=== PATIENT | female | born 1980 | race African-American/Black ===

== ENCOUNTER 2017-04-14 20:32 | Observation (INO) | payer MEDICARE, MEDICAID ==
[~2017-04-14] VITALS: Ht 167.6 cm; Wt 83.1 kg
[2017-04-14] MEDS ORDERED: FLUO40CA PO (20:54)
[2017-04-14] MEDS ORDERED: OMEP40CA2 PO (20:54)
[2017-04-14] MEDS ORDERED: ONDA8TAB7 PO (20:54)
[2017-04-14] MEDS ORDERED: LORA10CA PO (20:54)
[2017-04-14] MEDS ORDERED: QUET1TAB10 PO (20:54)
[2017-04-14] MEDS ORDERED: MORP30TASA PO (20:54)
[2017-04-14] MEDS ORDERED: OXYC1TAB23 PO (20:54)
[2017-04-14] MEDS ORDERED: KEPP1TAB PO (20:54)
[2017-04-14 22:49] LABS: METHADONE URINE NEGATIVE (NEGATIVE)
[2017-04-14 23:03] LABS: MEAN CORPUSCULAR HGB CONC 33.4 g/dl (32.0-36.5); MEAN CORPUSCULAR VOLUME 104.8 fl (80.0-96.0); PLATELET COUNT, AUTOMATED 167 10^3/uL (150-450); RED CELL DISTRIBUTION WIDTH 13.3 % (11.5-14.5); WHITE BLOOD COUNT 4.5 10^3/uL (4.0-10.0)
[2017-04-14 23:24] LABS: CONTROL LINE HCG INT CTR LINE PRESENT
[2017-04-14] MEDS ORDERED: LORA10TA2 PO (23:34)
[2017-04-14] MEDS ORDERED: ESTR125TA PO (23:34)
[2017-04-14] MEDS ORDERED: SUMA50TA2 PO (23:34)
[2017-04-14] MEDS ORDERED: VENTAER INH (23:34)
[2017-04-14] MEDS ORDERED: QUET30XR PO (23:34)
[2017-04-14 23:41] LABS: ALBUMIN 2.1 GM/DL (3.2-5.2); ALKALINE PHOSPHATASE 84 U/L (45-117); ALT/SGPT 60 U/L (12-78); ANION GAP 7 MEQ/L (8-16); AST/SGOT 191 U/L (7-37); BILIRUBIN,DIRECT 0.4 MG/DL (0.0-0.2); BILIRUBIN,TOTAL 0.5 MG/DL (0.2-1.0); BLOOD UREA NITROGEN 16 MG/DL (7-18); CALCIUM LEVEL 7.6 MG/DL (8.5-10.1); CARBON DIOXIDE LEVEL 27 MEQ/L (21-32); CHLORIDE LEVEL 110 MEQ/L (98-107); CREATININE FOR GFR 0.72 MG/DL (0.55-1.02); GLOMERULAR FILTRATION RATE > 60.0 (>60); GLUCOSE, FASTING 68 MG/DL (70-105); POTASSIUM SERUM 3.9 MEQ/L (3.5-5.1); SODIUM LEVEL 144 MEQ/L (136-145); TOTAL PROTEIN 5.1 GM/DL (6.4-8.2)
[2017-04-15] MEDS ORDERED: NS 1,000 ML IV ONE
[2017-04-15] MEDS ORDERED: NS 1,000 ML IV SCH (02:30)
[2017-04-15] MEDS ORDERED: ACETAMINOPHEN TAB 650MG DOSE (2X325MG) PO PRN (02:45)
--- NOTE | 2017-04-15 03:56 | HPEPDOC ---
[facility] Medical History & Physical Date of Admission Apr 15, 2017 History and Physical PRIMARY CARE PROVIDER: Junaid Maxwell ATTENDING: Dr. Greta Márquez CHIEF COMPLAINT: Suicidal ideation HISTORY OF PRESENT ILLNESS: This is a 36-year-old female past medical history of ADHD, Asperger's, bipolar disorder, anxiety, Crohn's disease, depression who presents with suicidal ideations. Patient apparently had text that her brother and sister that she wanted to and was thinking of planning a way to commit suicide. Patient states she's been very depressed and does not believe that her medications are working. She has attempted to schedule an appointment with behavioral health however has been having a difficult time doing so. Patient states she has history of panic attacks, had a recent exercise treadmill stress test and echocardiogram. She denies any other strenuous activity. Denies chest pain/palpitations. Patient was noted to have elevated CPK level, psychiatry was called, and wanted the CK level to be lower prior to admission to inpatient mental health. Patient was started on IV fluids in the ED. PAST MEDICAL HISTORY: As per HPI PAST SURGICAL HISTORY: , left knee surgery, ankle surgery, hysterectomy , gastric bypass SOCIAL HISTORY: Denies tobacco, alcohol, illicit drug use. Urine tox screen however was positive for marijuana FAMILY HISTORY: Noncontributory ALLERGIES: Please see below. REVIEW OF SYSTEMS: HEENT: Denies sore throat/headache CARDIOVASCULAR: Denies chest pain/palpitations RESPIRATORY: Denies shortness of breath/cough GASTROINTESTINAL: denies nausea/vomiting GENITOURINARY: Denies dysuria/urinary urgency. MUSCULOSKELETAL: Denies myalgias/arthralgias NEUROLOGICAL: Denies any focal weakness HOME MEDICATIONS: Please see below. PHYSICAL EXAMINATION: Vitals: (see below) General: No acute distress, laying comfortably in bed. HEENT: Moist mucous membranes. Neck: No JVD or lymphadenopathy Cardiac: RRR, No murmurs Pulm: Clear to auscultation b/l. No wheezing, rhonchi Abd: NT/ND + BS Ext: No edema or cyanosis Depressed with suicidal ideations LABORATORY DATA: See below. IMAGING: MICROBIOLOGY: Please see below. ASSESSMENT/PLAN: 1. Elevated CPK likely secondary to recent stress test. Patient denies any other illicit drug use although her drug screen was positive for marijuana. No seizures. Started on IV fluids. We'll trend CK level. Renal function at baseline. 2. Suicidal ideation- will need psychiatric consultation once medically optimized. One-to-one 3. History of bipolar disorder continue home meds 4. History of anxiety continue meds 5. History of Crohn's continue meds 6. Chronic back pain- on morphine /Percocet at home 7. Macrocytic anemia- we'll check a B12/folate. Iron/ferritin/TIBC. History of gastric bypass DVT prophylaxis SCDs Patient was followed by Dr. Greta Márquez starting 04/15/17 at 7 AM. Vital Signs Vital Signs Date Time Temp Pulse Resp B/P (MAP) Pulse Ox O2 Delivery O2 Flow Rate FiO2 04/14/17 20:33 98.7 78 18 141/91 (108) 99 Laboratory Data Labs 24H Laboratory Tests 2 04/14/17 22:20: Urine Amphetamines Screen NEGATIVE, Urine Benzodiazepines Screen NEGATIVE, Urine Opiates Screen POSITIVEH, Urine Methadone Screen NEGATIVE, Urine Barbiturates Screen NEGATIVE, Urine Phencyclidine Screen NEGATIVE, Urine Cocaine Metabolite Screen NEGATIVE, Urine Cannabinoids Screen POSITIVEH 04/14/17 22:45: Nucleated Red Blood Cells % (auto) 0.0, Anion Gap 7L, Glomerular Filtration Rate > 60.0, Calcium Level 7.6L, Aspartate Amino Transf (AST/SGOT) 191H, Alanine Aminotransferase (ALT/SGPT) 60, Alkaline Phosphatase 84, Total Bilirubin 0.5, Direct Bilirubin 0.4H, Total Creatine Kinase 2444H, Total Protein 5.1L, Albumin 2.1L, Albumin/Globulin Ratio 0.70L, Thyroid Stimulating Hormone (TSH) 3.010, Human Chorionic Gonadotropin, Qual NEGATIVE, Salicylates Level < 1.7L, Acetaminophen Level 10.8, Ethyl Alcohol Level < 0.003 CBC/BMP Laboratory Tests 04/14/17 22:45 Red Blood Count 3.31 L, Mean Corpuscular Volume 104.8 H, Mean Corpuscular Hemoglobin 35.0 H, Mean Corpuscular Hemoglobin Concent 33.4, Red Cell Distribution Width 13.3 Home Medications Scheduled Conjugated Estrogens (Premarin) 1.25 Mg Tab, 1.25 MG PO DAILY Fluoxetine Hcl (Fluoxetine HCl) 40 Mg Cap, 40 MG PO DAILY Levetiracetam (Keppra) 500 Mg Tab, 500 MG PO BID Loratadine (Loratadine) 10 Mg Tab, 10 MG PO DAILY Morphine Sulfate (Morphine Sulfate ER) 30 Mg Tabcr, 30 MG PO TID Omeprazole (Omeprazole) 40 Mg Cap, 40 MG PO BID Quetiapine Fumarate (Seroquel Xr) 300 Mg Theresa, 600 MG PO DAILY Scheduled PRN Albuterol Sulfate (Ventolin Hfa) 108 Mcg/Act Aer, 2 PUFFS INH Q4H PRN for SHORTNESS OF BREATH Ondansetron HCl (Ondansetron HCl) 8 Mg Tab, 8 MG PO TID PRN for NAUSEA Oxycodone/Acetaminophen (Oxycodone/Acetaminophen 5-325 mg) 1 Tab Tab, 1 TAB PO QID PRN for PAIN SCALE 6-10 Sumatriptan Succinate (Sumatriptan Succinate) 50 Mg Tab, 50 MG PO DAILY PRN for MIGRAINE Allergies Coded Allergies: Adalimumab (Verified Allergy, Intermediate, 04/14/17) Tramadol (Verified Allergy, Intermediate, 04/14/17) STEVE SALAS MD Apr 15, 2017 03:56
[2017-04-15] MEDS: NS 1,000 ML IV SCH ×3 (04:57→21:52)
[2017-04-15 06:00] VITALS: BP 128/91
[2017-04-15 06:07] LABS: BASO % 0.2 % (0.0-1.0); EOS % 0.5 % (0.0-3.0); IMMATURE GRANULOCYTE % 0.5 % (0-0); LYMPH # 1.2 10^3/uL (1.5-4.5); LYMPH % 28.5 % (24.0-44.0); MEAN CORPUSCULAR HEMOGLOBIN 35.1 pg (27.0-33.0); MEAN CORPUSCULAR HGB CONC 33.6 g/dl (32.0-36.5); MEAN CORPUSCULAR VOLUME 104.2 fl (80.0-96.0); MONO # 0.4 10^3/uL (0.0-0.8); MONO % 10.1 % (0.0-5.0); NEUTROPHILS # 2.6 10^3/uL (1.8-7.7); NEUTROPHILS % 60.2 % (36.0-66.0); PLATELET COUNT, AUTOMATED 176 10^3/uL (150-450); RED CELL DISTRIBUTION WIDTH 13.4 % (11.5-14.5); WHITE BLOOD COUNT 4.4 10^3/uL (4.0-10.0)
[2017-04-15 06:40] LABS: PERCENT SATURATION 99.1 % (13.2-45.0)
[2017-04-15 10:00] VITALS: BP 102/64
[2017-04-15] MEDS ORDERED: ALBUTEROL 90 MCG/ACT 8GM HFA INHALER INH PRN (10:30)
[2017-04-15] MEDS ORDERED: SUMAtriptan SUCCINATE 25 MG TAB PO PRN (10:30)
--- NOTE | 2017-04-15 10:32 | IPNPDOC ---
Date Seen The patient was seen on 04/15/17. Progress Note SUBJECTIVE: Patient is a 36-year-old female with suicidal ideation. Patient is evaluated at bedside this morning. She has a one-to-one sitter. She appear somewhat melancholic and subdued. States that she wanted to kill herself, but did not have a bustos in place to do so. She denies chest pain, fever , night sweats, chills, abdominal pain. Said she ate breakfast this morning. OBJECTIVE PHYSICAL EXAMINATION: VITAL SIGNS: Please see below. GENERAL: Well nourished, well developed female, appears stated age, somewhat melancholic, without acute distress HEENT: Atraumatic, normocephalic, PERRL, EOMI, oral mucosa appears pink and moist, nasal septum appears midline, nares are patent CARDIOVASCULAR: Regular rate and rhythm, normal S1 and S2, no murmur, rub, click RESPIRATORY: Somewhat diminished lung sounds on the right lower lung lobe likely due to positioning, other clear lung sounds throughout, no wheeze, rhonchi, crackles ABDOMINAL: Soft, flat, non-tender, non-distended, bowel sounds somewhat diminished, no organomegaly, no rebound or guarding EXTREMITIES: Radial and posterior tibial pulses equal and symmetrical, +2, without peripheral edema NEUROLOGICAL: CN II-XII grossly intact PSYCHOLOGICAL: Alert and conversant, melancholic LABORATORY DATA: Please see below. MICROBIOLOGY: Please see below. DVT prophylaxis ordered?: Mechanical - TEDs and sequentials ASSESSMENT AND PLAN: This is a 36-year-old female with suicidal ideation. PROBLEMS: 1. Elevated CPK: Improving. CPK is 1868. Continue with NS @125mLs/hr. Renal function is within appropriate range. 2. Suicidal ideation: Psychiatry will need to consulted once CPK begins to improve; improvements already noted Will need transfer to [facility]. 3. Macrocytic anemia: Patient is status-post gastric bypass which is likely result of macrocytic anemia. Folate and vitamin B12 level are pending. Iron studies are within optimal range. 4. Positive toxicology: Cannabinoids were positive. 5. Depression: Continue with Fluoxetine. 6. Seizures: Continue with Keppra. 7. Bipolar: Continue with Seroquel. 8. Allergies: Continue with Claritin. 9. Gastroesophageal reflux disease: Continue with Omeprazole. 10. Migraines: Continue with Imitrex. DISPOSITION: Continue IVF with NS @125mLs/hr. IMHU transfer once CPK improves. Potential transfer in 24-48 hours. [facility] V[facility] Signs/I&O Vital Signs Date Time Temp Pulse Resp B/P (MAP) Pulse Ox O2 Delivery O2 Flow Rate FiO2 04/15/17 07:54 Room Air 04/15/17 06:00 97.3 66 16 128/91 (103) 99 Laboratory Data 24H LABS Laboratory Tests 2 04/14/17 22:20: Urine Amphetamines Screen NEGATIVE, Urine Benzodiazepines Screen NEGATIVE, Urine Opiates Screen POSITIVEH, Urine Methadone Screen NEGATIVE, Urine Barbiturates Screen NEGATIVE, Urine Phencyclidine Screen NEGATIVE, Urine Cocaine Metabolite Screen NEGATIVE, Urine Cannabinoids Screen POSITIVEH 04/14/17 22:45: Nucleated Red Blood Cells % (auto) 0.0, Anion Gap 7L, Glomerular Filtration Rate > 60.0, Calcium Level 7.6L, Aspartate Amino Transf (AST/SGOT) 191H, Alanine Aminotransferase (ALT/SGPT) 60, Alkaline Phosphatase 84, Total Bilirubin 0.5, Direct Bilirubin 0.4H, Total Creatine Kinase 2444H, Total Protein 5.1L, Albumin 2.1L, Albumin/Globulin Ratio 0.70L, Thyroid Stimulating Hormone (TSH) 3.010, Human Chorionic Gonadotropin, Qual NEGATIVE, Salicylates Level < 1.7L, Acetaminophen Level 10.8, Ethyl Alcohol Level < 0.003 04/15/17 05:54: Nucleated Red Blood Cells % (auto) 0.0, Total Creatine Kinase 1868H, Immature Granulocyte % (Auto) 0.5H, White Blood Count 4.4, Red Blood Count 3.08L, Hemoglobin 10.8L, Hematocrit 32.1L, Mean Corpuscular Volume 104.2H, Mean Corpuscular Hemoglobin 35.1H, Mean Corpuscular Hemoglobin Concent 33.6, Red Cell Distribution Width 13.4, Platelet Count 176, Neutrophils (%) (Auto) 60.2, Lymphocytes (%) (Auto) 28.5, Monocytes (%) (Auto) 10.1H, Eosinophils (%) (Auto) 0.5, Basophils (%) (Auto) 0.2, Neutrophils # (Auto) 2.6, Lymphocytes # (Auto) 1.2L, Monocytes # (Auto) 0.4, Eosinophils # (Auto) 0.0, Basophils # (Auto) 0.0, Immature Granulocyte # (Auto) 0.0, Iron Level 110, Total Iron Binding Capacity 111L, Transferrin % Saturation 99.1H, Ferritin 154 CBC/BMP Laboratory Tests 04/14/17 22:45 Red Blood Count 3.31 L, Mean Corpuscular Volume 104.8 H, Mean Corpuscular Hemoglobin 35.0 H, Mean Corpuscular Hemoglobin Concent 33.4, Red Cell Distribution Width 13.3 04/15/17 05:54 Red Blood Count 3.08 L, Mean Corpuscular Volume 104.2 H, Mean Corpuscular Hemoglobin 35.1 H, Mean Corpuscular Hemoglobin Concent 33.6, Red Cell Distribution Width 13.4, Neutrophils (%) (Auto) 60.2, Lymphocytes (%) (Auto) 28.5, Monocytes (%) (Auto) 10.1 H, Eosinophils (%) (Auto) 0.5, Basophils (%) ( Auto) 0.2, Neutrophils # (Auto) 2.6, Lymphocytes # (Auto) 1.2 L, Monocytes # ( Auto) 0.4, Eosinophils # (Auto) 0.0, Basophils # (Auto) 0.0 IGOR PARK DO Apr 15, 2017 10:32
[2017-04-15] MEDS: LORATADINE 10 MG TAB PO SCH (11:05)
[2017-04-15] MEDS: FLUoxetine 20 MG CAP PO SCH (11:06)
[2017-04-15] MEDS: levETIRAcetam 250MG TABLET (KEPPRA) PO SCH ×2 (11:06→21:51)
[2017-04-15] MEDS: OMEPRAZOLE 20 MG CAP PO SCH ×2 (11:06→21:51)
[2017-04-15] MEDS: PERCOCET 5MG/325MG TAB PO PRN ×2 (11:38→20:22)
[2017-04-15] MEDS: MORPHINE 15 MG SA TAB PO SCH ×2 (13:07→21:51)
[2017-04-15 18:00] VITALS: BP 131/82
--- NOTE | 2017-04-15 21:41 | ECGEPIP ---
Stationary ECG Study [facility] Test Date: 2017-04-15 Pat Name: MICKI OATES Department: Room: [place] [address] Gender: F Clinical Supervisor: : 1980 Requested By: JOSESITO DAIVLA Order Number: [id number] Reading MD: Carly Mejía Measurements Intervals [place] Rate: 75 P: 58 AR: 131 QRS: 6 QRSD: 85 T: 1 QT: 424 QTc: 474 Interpretive Statements SINUS RHYTHM LOW QRS VOLTAGE IN PRECORDIAL LEADS AND LIMB POSSIBLE RIGHT VENTRICULAR CONDUCTION DELAY MODERATE T-WAVE ABNORMALITY, CONSIDER ANTERIOR ISCHEMIA Left axis deviation NO PRIOR Electronically Signed On 04-15-2017 21:41:27 EST by Carly Mejía
[2017-04-15] MEDS: QUEtiapine 300 MG XR TABLET(SEROQUEL XR) PO SCH (21:51)
[2017-04-15 22:00] VITALS: BP 122/81
--- NOTE | 2017-04-16 00:16 | IPNPDOC ---
Text Note Date of Service The patient was seen on 04/16/17. NOTE overnight provider called for complaint of chest pain. On exam the pt complained of chest pain under her left breast, tender to palpation, 8/10, new and acute in onset with radiation to her back. Cardiac markers ordered. EKG demonstrated NSR with some flipped T waves in leads V2.V3. CTA chest ordered, r/ o dissection. BP/vitals stable at time of exam. VS,Fishbone, I+O VS, Fishbone, I+O Laboratory Tests 04/15/17 05:54 Red Blood Count 3.08 L, Mean Corpuscular Volume 104.2 H, Mean Corpuscular Hemoglobin 35.1 H, Mean Corpuscular Hemoglobin Concent 33.6, Red Cell Distribution Width 13.4, Neutrophils (%) (Auto) 60.2, Lymphocytes (%) (Auto) 28.5, Monocytes (%) (Auto) 10.1 H, Eosinophils (%) (Auto) 0.5, Basophils (%) ( Auto) 0.2, Neutrophils # (Auto) 2.6, Lymphocytes # (Auto) 1.2 L, Monocytes # ( Auto) 0.4, Eosinophils # (Auto) 0.0, Basophils # (Auto) 0.0 Vital Signs Date Time Temp Pulse Resp B/P (MAP) Pulse Ox O2 Delivery O2 Flow Rate FiO2 04/15/17 22:00 97.7 67 18 122/81 (95) 97 Room Air JOSESITO DAVILA DO Apr 16, 2017 00:16
[2017-04-16 02:00] VITALS: BP 109/67
[2017-04-16] MEDS: NS 1,000 ML IV SCH ×3 (04:32→21:33)
[2017-04-16] MEDS: PERCOCET 5MG/325MG TAB PO PRN ×2 (04:56→12:55)
[2017-04-16] MEDS: MORPHINE 15 MG SA TAB PO SCH (05:42)
[2017-04-16 06:00] VITALS: BP 101/69
[2017-04-16 06:20] LABS: BASO % 0.3 % (0.0-1.0); EOS # 0.1 10^3/uL (0.0-0.50); EOS % 1.8 % (0.0-3.0); IMMATURE GRANULOCYTE % 0.3 % (0-0); LYMPH # 1.8 10^3/uL (1.5-4.5); LYMPH % 53.7 % (24.0-44.0); MEAN CORPUSCULAR HEMOGLOBIN 34.9 pg (27.0-33.0); MEAN CORPUSCULAR HGB CONC 33.4 g/dl (32.0-36.5); MEAN CORPUSCULAR VOLUME 104.3 fl (80.0-96.0); MONO # 0.3 10^3/uL (0.0-0.8); MONO % 9.8 % (0.0-5.0); NEUTROPHILS # 1.1 10^3/uL (1.8-7.7); NEUTROPHILS % 34.1 % (36.0-66.0); PLATELET COUNT, AUTOMATED 143 10^3/uL (150-450); RED CELL DISTRIBUTION WIDTH 13.2 % (11.5-14.5); WHITE BLOOD COUNT 3.3 10^3/uL (4.0-10.0)
--- NOTE | 2017-04-16 07:20 | IPNPDOC ---
Date Seen The patient was seen on 04/16/17. Progress Note SUBJECTIVE: Pt seen and examined at the bedside. Chart has been reviewed. She complains of feeling very sleepy. no nausea, abd pain, sob, chills,chest pain. OBJECTIVE PHYSICAL EXAMINATION: VITAL SIGNS: Please see below. GENERAL: Well nourished, well developed female, appears stated age, without acute distress HEENT: Atraumatic, normocephalic, PERRL, EOMI, oral mucosa appears pink and moist, nasal septum appears midline, nares are patent CARDIOVASCULAR: Regular rate and rhythm, normal S1 and S2, no murmur, rub, click RESPIRATORY: Somewhat diminished lung sounds on the right lower lung lobe likely due to positioning, other clear lung sounds throughout, no wheeze, rhonchi, crackles ABDOMINAL: Soft, flat, non-tender, non-distended, bowel sounds somewhat diminished, no organomegaly, no rebound or guarding EXTREMITIES: Radial and posterior tibial pulses equal and symmetrical, +2, without peripheral edema NEUROLOGICAL: CN II-XII grossly intact PSYCHOLOGICAL: Alert and conversant, melancholic LABORATORY DATA: Please see below. MICROBIOLOGY: Please see below. DVT prophylaxis ordered?: Mechanical - TEDs and sequentials ASSESSMENT AND PLAN: 36-year-old female past medical history of ADHD, Asperger's , bipolar disorder, anxiety, Crohn's disease, depression who presents with suicidal ideations.Patient apparently had text that her brother and sister that she wanted to and was thinking of planning a way to commit suicide. Patient states she's been very depressed and does not believe that her medications are working. She has attempted to schedule an appointment with behavioral health however has been having a difficult time doing so.Patient states she has history of panic attacks, had a recent exercise treadmill stress test and echocardiogram.She denies any other strenuous activity. Denies chest pain/palpitations.Patient was noted to have elevated CPK level, psychiatry was called, and wanted the CK level to be lower prior to admission to inpatient mental health. Patient was started on IV fluids in the ED. CURRENT ISSUES: 1. Elevated CPK: Improving. CPK is 1868. Continue with NS @125mLs/hr. Renal function is within appropriate range. 2. Suicidal ideation: Psychiatry will need to consulted once CPK begins to improve; improvements already noted Will need transfer to [facility]. 3. Macrocytic anemia: Patient is status-post gastric bypass which is likely result of macrocytic anemia. Folate and vitamin B12 level are pending. Iron studies are within optimal range. 4. Positive toxicology: Cannabinoids were positive. 5. Depression: Continue with Fluoxetine. 6. Seizures: Continue with Keppra. 7. Bipolar: Continue with Seroquel. 8. Allergies: Continue with Claritin. 9. Gastroesophageal reflux disease: Continue with Omeprazole. 10. Migraines: Continue with Imitrex. DISPOSITION: Continue IVF with NS @125mLs/hr. [facility] transfer once CPK improves. Potential transfer in 24-48 hours. VS, I&O, 24H, Fishbone Vital Signs/I&O Vital Signs Date Time Temp Pulse Resp B/P (MAP) Pulse Ox O2 Delivery O2 Flow Rate FiO2 04/16/17 05:26 18 97 Room Air 04/16/17 02:00 97.1 70 109/67 (81) Laboratory Data 24H LABS Laboratory Tests 2 04/15/17 05:54: Immature Granulocyte % (Auto) 0.5H, White Blood Count 4.4, Red Blood Count 3.08L , Hemoglobin 10.8L, Hematocrit 32.1L, Mean Corpuscular Volume 104.2H, Mean Corpuscular Hemoglobin 35.1H, Mean Corpuscular Hemoglobin Concent 33.6, Red Cell Distribution Width 13.4, Platelet Count 176, Neutrophils (%) (Auto) 60.2, Lymphocytes (%) (Auto) 28.5, Monocytes (%) (Auto) 10.1H, Eosinophils (%) (Auto) 0.5, Basophils (%) (Auto) 0.2, Neutrophils # (Auto) 2.6, Lymphocytes # (Auto) 1.2L, Monocytes # (Auto) 0.4, Eosinophils # (Auto) 0.0, Basophils # (Auto) 0.0, Immature Granulocyte # (Auto) 0.0, Nucleated Red Blood Cells % (auto) 0.0, Iron Level 110, Total Iron Binding Capacity 111L, Transferrin % Saturation 99.1H, Ferritin 154, Total Creatine Kinase 1868H 04/15/17 22:55: Total Creatine Kinase 858H, Creatine Kinase MB 3.8H, Creatine Kinase MB Relative Index 0.44, Troponin I < 0.02 CBC/BMP Laboratory Tests 04/15/17 05:54 Red Blood Count 3.08 L, Mean Corpuscular Volume 104.2 H, Mean Corpuscular Hemoglobin 35.1 H, Mean Corpuscular Hemoglobin Concent 33.6, Red Cell Distribution Width 13.4, Neutrophils (%) (Auto) 60.2, Lymphocytes (%) (Auto) 28.5, Monocytes (%) (Auto) 10.1 H, Eosinophils (%) (Auto) 0.5, Basophils (%) ( Auto) 0.2, Neutrophils # (Auto) 2.6, Lymphocytes # (Auto) 1.2 L, Monocytes # ( Auto) 0.4, Eosinophils # (Auto) 0.0, Basophils # (Auto) 0.0 ANDRZEJ TRONCOSO MD Apr 16, 2017 05:41
[2017-04-16] MEDS ORDERED: ISOVUE-370 76% 100ML VIAL (Q9967) As Ordered ONE (08:53)
[2017-04-16] MEDS: LORATADINE 10 MG TAB PO SCH (08:57)
[2017-04-16] MEDS: levETIRAcetam 250MG TABLET (KEPPRA) PO SCH ×2 (08:57→21:35)
[2017-04-16] MEDS: FLUoxetine 20 MG CAP PO SCH (08:57)
[2017-04-16] MEDS: OMEPRAZOLE 20 MG CAP PO SCH ×2 (08:57→21:34)
[2017-04-16] MEDS: ONDANSETRON 4MG/2ML VIAL (J2405) IV PRN ×2 (09:41→17:28)
[2017-04-16 10:00] VITALS: BP 124/63
[2017-04-16] MEDS ORDERED: oxyCODONE 5MG TAB PO PRN (13:15)
[2017-04-16] MEDS ORDERED: SENOKOT S TAB PO PRN (13:15)
[2017-04-16] MEDS ORDERED: MORPHINE 2 MG/ML 1ML SYRINGE IV PRN (13:15)
[2017-04-16] MEDS ORDERED: GI COCKTAIL 50ML BTL(HYOSCYAMINE/MAALOX/LIDOCAINE VISCOUS)(1:3:1) PO PRN (13:15)
[2017-04-16] MEDS ORDERED: MOM 30ML SUSPENSION UDC PO PRN (13:15)
[2017-04-16] MEDS ORDERED: KETOROLAC 30 MG/ML VIAL (J1885) IV ONE (13:30)
[2017-04-16 14:00] VITALS: BP 134/86
[2017-04-16] MEDS: ACETAMINOPHEN 500 MG TAB PO SCH ×2 (14:02→21:35)
[2017-04-16] MEDS ORDERED: GI COCKTAIL 50ML BTL(HYOSCYAMINE/MAALOX/LIDOCAINE VISCOUS)(1:3:1) PO ONE (14:30)
[2017-04-16] MEDS ORDERED: NALOXONE INJ 0.4 MG/1 ML VIAL (J2310) IV PRN (14:30)
[2017-04-16] MEDS ORDERED: MORPHINE 30 MG SA TAB PO ONE (14:30)
[2017-04-16] MEDS: MORPHINE 30 MG TAB **MSIR PO PRN ×2 (17:25→21:37)
[2017-04-16] MEDS: QUEtiapine 300 MG XR TABLET(SEROQUEL XR) PO SCH (21:36)
[2017-04-16] MEDS: MORPHINE 30 MG SA TAB PO SCH (21:36)
[2017-04-16 22:00] VITALS: BP 132/68
[2017-04-16] MEDS: diphenhydrAMINE INJ 50MG/ML VIAL (J1200) IV PRN (22:31)
[2017-04-17 02:00] VITALS: BP 132/76
[2017-04-17] MEDS: NS 1,000 ML IV SCH ×2 (04:58→13:00)
[2017-04-17] MEDS: MORPHINE 30 MG TAB **MSIR PO PRN ×2 (05:40→14:34)
[2017-04-17] MEDS: ONDANSETRON 4MG/2ML VIAL (J2405) IV PRN (05:40)
[2017-04-17] MEDS: diphenhydrAMINE INJ 50MG/ML VIAL (J1200) IV PRN (05:41)
[2017-04-17 05:51] LABS: BASO % 0.3 % (0.0-1.0); IMMATURE GRANULOCYTE % 0.3 % (0-0); LYMPH # 1.1 10^3/uL (1.5-4.5); LYMPH % 39.2 % (24.0-44.0); MEAN CORPUSCULAR HEMOGLOBIN 34.7 pg (27.0-33.0); MEAN CORPUSCULAR HGB CONC 32.6 g/dl (32.0-36.5); MEAN CORPUSCULAR VOLUME 106.6 fl (80.0-96.0); MONO # 0.2 10^3/uL (0.0-0.8); MONO % 8.3 % (0.0-5.0); NEUTROPHILS # 1.5 10^3/uL (1.8-7.7); NEUTROPHILS % 50.9 % (36.0-66.0); PLATELET COUNT, AUTOMATED 131 10^3/uL (150-450); RED CELL DISTRIBUTION WIDTH 13.4 % (11.5-14.5); WHITE BLOOD COUNT 2.9 10^3/uL (4.0-10.0)
[2017-04-17 06:00] VITALS: BP 138/74
[2017-04-17] MEDS: FLUoxetine 20 MG CAP PO SCH (08:30)
[2017-04-17] MEDS: OMEPRAZOLE 20 MG CAP PO SCH (08:33)
[2017-04-17] MEDS: MORPHINE 30 MG SA TAB PO SCH (08:33)
[2017-04-17] MEDS: levETIRAcetam 250MG TABLET (KEPPRA) PO SCH (08:33)
[2017-04-17] MEDS: LORATADINE 10 MG TAB PO SCH (08:33)
[2017-04-17] MEDS: ACETAMINOPHEN 500 MG TAB PO SCH (08:35)
[2017-04-17 08:45] LABS: ANION GAP 9 MEQ/L (8-16); BLOOD UREA NITROGEN 8 MG/DL (7-18); CALCIUM LEVEL 7.3 MG/DL (8.5-10.1); CARBON DIOXIDE LEVEL 21 MEQ/L (21-32); CHLORIDE LEVEL 118 MEQ/L (98-107); CREATININE FOR GFR 0.61 MG/DL (0.55-1.02); GLOMERULAR FILTRATION RATE > 60.0 (>60); GLUCOSE, FASTING 68 MG/DL (70-105); POTASSIUM SERUM 3.8 MEQ/L (3.5-5.1); SODIUM LEVEL 148 MEQ/L (136-145)
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
[2017-04-17 10:00] VITALS: BP 125/69
[2017-04-17 10:42] LABS: FOLATE 12.2 NG/ML (>5.4)
[2017-04-17 11:00] LABS: ALKALINE PHOSPHATASE 62 U/L (45-117); ALT/SGPT 56 U/L (12-78); AST/SGOT 122 U/L (7-37); BILIRUBIN,DIRECT 0.3 MG/DL (0.0-0.2); BILIRUBIN,TOTAL 0.6 MG/DL (0.2-1.0); TOTAL PROTEIN 4.2 GM/DL (6.4-8.2)
[2017-04-17 11:01] LABS: ALBUMIN 1.4 GM/DL (3.2-5.2)
--- NOTE | 2017-04-17 11:09 | DS.PDOC ---
Discharge Summary General Date of Admission Apr 14, 2017 at 20:33 Date of Discharge 04/17/2017 Primary Care Physician: Junaid Maxwell MD [facility] Attending Physician: ANDRZEJ TRONCOSO MD Specialist/Consultants Involve: Deejay Zarate MD Discharge Summary PROCEDURES PERFORMED DURING STAY: None. ADMITTING DIAGNOSES: 1. Suicidal ideation. 2. Elevated creatine kinase. DISCHARGE DIAGNOSES: 1. Suicidal ideation. COMPLICATIONS/CHIEF COMPLAINT: Elevated Creatine Phosphokinase Level, SI. HISTORY OF PRESENT ILLNESS: This is a 36-year-old female past medical history of ADHD, Asperger's, bipolar disorder, anxiety, Crohn's disease, depression who presents with suicidal ideations. Patient apparently had text that her brother and sister that she wanted to and was thinking of planning a way to commit suicide. Patient states she's been very depressed and does not believe that her medications are working. She has attempted to schedule an appointment with behavioral health however has been having a difficult time doing so. Patient states she has history of panic attacks, had a recent exercise treadmill stress test and echocardiogram. She denies any other strenuous activity. Denies chest pain/palpitations. Patient was noted to have elevated CPK level, psychiatry was called, and wanted the CK level to be lower prior to admission to inpatient mental health. Patient was started on IV fluids in the ED. HOSPITAL COURSE: Patient was admitted to the medical-surgical unit to monitor creatine kinase levels pending transfer to [facility]. She was maintained with one-on- one observation. Her home medications were continued. Daily creatine kinase levels were followed; they have decreased each day from 2444 down to 218 today. Psychiatry was consulted. Patient was noted to have macrocytic anemia; folic acid and Vitamin B12 levels are still pending at time of transfer. Admitted to right upper quadrant pain with palpation. Liver profile was obtained and although elevated, AST has improved. Afebrile, normal WBC, blood pressure is stable. She has improved clinically throughout admission and is medical stable for discharge to [facility]. DISCHARGE MEDICATIONS: Please see below. ALLERGIES: Please see below. PHYSICAL EXAMINATION ON DISCHARGE: VITAL SIGNS: Please see below. GENERAL: Alert female lying supine in bed, in no obvious distress HEENT: Atraumatic, normocephalic; EOMI NECK: Supple CARDIOVASCULAR EXAMINATION: Normal S1/S2, no noted rubs, murmurs, or gallops RESPIRATORY EXAMINATION: Clear to auscultation in all ferrell bilaterally ABDOMINAL EXAMINATION: Soft, tender to palpation RLQ and LLQ. Normoactive bowel sounds EXTREMITIES: Moves all extremities. No noted peripheral edema SKIN: Warm and dry NEUROLOGICAL EXAMINATION: CN II-XII grossly intact PSYCHIATRIC EXAMINATION: Alert and conversant; melancholic LABORATORY DATA: Please see below. IMAGING: None PROGNOSIS: Good. ACTIVITY: As tolerated. DIET: Regular diet. DISCHARGE PLAN: [facility] DISPOSITION: [facility]. DISCHARGE INSTRUCTIONS: 1. Continue treatment for suicidal ideations with psychiatry. 2. Continue home medications with changes as recommended by psychiatry. ITEMS TO FOLLOWUP ON ON OUTPATIENT: 1. Macrocytic anemia - follow results of Vitamin B12 and Folic acid levels. DISCHARGE CONDITION: Stable. TIME SPENT ON DISCHARGE: Greater than 30 minutes. Vital Signs/I&Os Vital Signs Date Time Temp Pulse Resp B/P (MAP) Pulse Ox O2 Delivery O2 Flow Rate FiO2 04/17/17 08:40 Room Air 04/17/17 08:33 18 04/17/17 06:00 96.8 99 138/74 (95) 95 Laboratory Data Labs 24H Laboratory Tests 2 04/17/17 05:24: Immature Granulocyte % (Auto) 0.3H, White Blood Count 2.9L, Red Blood Count 2.88L, Hemoglobin 10.0L, Hematocrit 30.7L, Mean Corpuscular Volume 106.6H, Mean Corpuscular Hemoglobin 34.7H, Mean Corpuscular Hemoglobin Concent 32.6, Red Cell Distribution Width 13.4, Platelet Count 131L, Neutrophils (%) (Auto) 50.9, Lymphocytes (%) (Auto) 39.2, Monocytes (%) (Auto) 8.3H, Eosinophils (%) (Auto) 1.0, Basophils (%) (Auto) 0.3, Neutrophils # (Auto) 1.5L, Lymphocytes # (Auto) 1.1L, Monocytes # (Auto) 0.2, Eosinophils # (Auto) 0.0, Basophils # (Auto) 0.0, Immature Granulocyte # (Auto) 0.0, Nucleated Red Blood Cells % (auto) 0.0, Anion Gap 9, Glomerular Filtration Rate > 60.0, Blood Urea Nitrogen 8, Creatinine 0.61, Sodium Level 148H, Potassium Level 3.8, Chloride Level 118H, Carbon Dioxide Level 21, Calcium Level 7.3L, Total Creatine Kinase 218H CBC/BMP Laboratory Tests 04/17/17 05:24 Red Blood Count 2.88 L, Mean Corpuscular Volume 106.6 H, Mean Corpuscular Hemoglobin 34.7 H, Mean Corpuscular Hemoglobin Concent 32.6, Red Cell Distribution Width 13.4, Neutrophils (%) (Auto) 50.9, Lymphocytes (%) (Auto) 39.2, Monocytes (%) (Auto) 8.3 H, Eosinophils (%) (Auto) 1.0, Basophils (%) ( Auto) 0.3, Neutrophils # (Auto) 1.5 L, Lymphocytes # (Auto) 1.1 L, Monocytes # ( Auto) 0.2, Eosinophils # (Auto) 0.0, Basophils # (Auto) 0.0, Calcium Level 7.3 L Discharge Medications Scheduled Conjugated Estrogens (Premarin) 1.25 Mg Tab, 1.25 MG PO DAILY, (Reported) Fluoxetine Hcl (Fluoxetine HCl) 40 Mg Cap, 40 MG PO DAILY, (Reported) Levetiracetam (Keppra) 500 Mg Tab, 500 MG PO BID, (Reported) Loratadine (Loratadine) 10 Mg Tab, 10 MG PO DAILY, (Reported) Morphine Sulfate (Morphine Sulfate ER) 30 Mg Tabcr, 30 MG PO TID, (Reported) Omeprazole (Omeprazole) 40 Mg Cap, 40 MG PO BID, (Reported) Quetiapine Fumarate (Seroquel Xr) 300 Mg Theresa, 600 MG PO QHS, (Reported) Scheduled PRN Albuterol Sulfate (Ventolin Hfa) 108 Mcg/Act Aer, 2 PUFFS INH Q4H PRN for SHORTNESS OF BREATH, (Reported) Ondansetron HCl (Ondansetron HCl) 8 Mg Tab, 8 MG PO TID PRN for NAUSEA, ( Reported) Oxycodone/Acetaminophen (Oxycodone/Acetaminophen 5-325 mg) 1 Tab Tab, 1 TAB PO QID PRN for PAIN SCALE 6-10, (Reported) Sumatriptan Succinate (Sumatriptan Succinate) 50 Mg Tab, 50 MG PO DAILY PRN for MIGRAINE, (Reported) Allergies Coded Allergies: Adalimumab (Verified Allergy, Intermediate, 04/14/17) Tramadol (Verified Allergy, Intermediate, 04/14/17) [place] 4, 2017 09:06
[2017-04-17 11:38] LABS: RETIC HEMOGLOBIN EQUIVALENT 37.2 pg (24-36); RETICULOCYTE % 1.2 % (0.5-1.5)
[2017-04-17 14:00] VITALS: BP 143/87
[2017-04-17 18:00] VITALS: BP 122/68
== END 2017-04-17 19:35 ==
LOC: M ED 20:32 → M ED INP 20:33 → M MSPAV 04-15 04:37 → M PSY 04-17 17:49
PROVIDERS: ADMIT Internal Medicine; ATTEND General Practice
DX: R45.851 Suicidal ideations (principal); R74.8 Abnormal levels of other serum enzymes; D53.9 Nutritional anemia, unspecified; R10.11 Right upper quadrant pain; R74.0 Nonspecific elevation of levels of transaminase and lactic acid dehydrogenase [LDH]; R07.9 Chest pain, unspecified; R94.31 Abnormal electrocardiogram [ECG] [EKG]; F90.9 Attention-deficit hyperactivity disorder, unspecified type; F84.5 Asperger's syndrome; F31.4 Bipolar disorder, current episode depressed, severe, without psychotic features; F41.9 Anxiety disorder, unspecified; K50.90 Crohn's disease, unspecified, without complications; R56.9 Unspecified convulsions; G43.909 Migraine, unspecified, not intractable, without status migrainosus; K21.9 Gastro-esophageal reflux disease without esophagitis; J30.9 Allergic rhinitis, unspecified; Z88.5 Allergy status to narcotic agent; Z88.8 Allergy status to other drugs, medicaments and biological substances; Z98.84 Bariatric surgery status; Z79.899 Other long term (current) drug therapy; Z79.891 Long term (current) use of opiate analgesic

== ENCOUNTER 2017-04-17 19:54 | Inpatient (IN) | payer MEDICARE, MEDICAID ==
[~2017-04-17] VITALS: Ht 167.6 cm; Wt 88.0 kg
[~2017-04-17 19:54] MED LIST: ESTR125TA PO; FLUO40CA PO; KEPP1TAB PO; LORA10CA PO; LORA10TA2 PO; MORP30TASA PO; OMEP40CA2 PO; ONDA8TAB7 PO; OXYC1TAB23 PO; QUET1TAB10 PO; QUET30XR PO; SUMA50TA2 PO; VENTAER INH
[2017-04-17 20:05] VITALS: BP 133/86
[2017-04-17 20:34] VITALS: BP 133/86
[2017-04-17] MEDS: OMEPRAZOLE 20 MG CAP PO SCH (21:00)
[2017-04-17] MEDS ORDERED: QUEtiapine 300 MG XR TABLET(SEROQUEL XR) PO SCH (21:00)
[2017-04-17] MEDS: ACETAMINOPHEN 500 MG TAB PO SCH (21:00)
[2017-04-17] MEDS ORDERED: MORPHINE 30 MG SA TAB PO SCH (21:00)
[2017-04-17] MEDS ORDERED: ALBUTEROL 90 MCG/ACT 8GM HFA INHALER INH PRN (23:00)
[2017-04-17] MEDS ORDERED: ONDANSETRON 4 MG TAB (S0181) PO PRN (23:15)
[2017-04-18 07:00] VITALS: BP 123/61
[2017-04-18] MEDS ORDERED: SENOKOT S TAB PO PRN (07:45)
[2017-04-18] MEDS ORDERED: MOM 30ML SUSPENSION UDC PO PRN (07:45)
[2017-04-18] MEDS: OMEPRAZOLE 20 MG CAP PO SCH ×2 (08:17→20:04)
[2017-04-18] MEDS: ACETAMINOPHEN 500 MG TAB PO SCH ×2 (08:17→20:07)
[2017-04-18] MEDS: LORATADINE 10 MG TAB PO SCH (08:18)
[2017-04-18] MEDS: MORPHINE 15 MG SA TAB PO SCH ×2 (08:18→20:06)
[2017-04-18] MEDS ORDERED: FLUoxetine 20 MG CAP PO SCH (09:00)
--- NOTE | 2017-04-18 09:09 | HPEPDOC ---
[facility] Medical History & Physical Date of Admission Apr 17, 2017 History and Physical PCP: Dr Maxwell ATTENDING: Dr. Beltran Mcleod HPI: 36 yo F admitted to [facility] from 04/15/17-04/17/17 related to elevated CK level, transferred to [facility] for bipolar disorder, being medically examined today. No acute medical complaints today. Denies any fevers, chills, weakness, fatigue, ESTEVES, CP, SOB, cough, palpitations, abdominal pain, N/V/D or changes in bowel or bladder habits. PMHx: ADHD Asperger syndrome Bipolar disorder Anxiety Depression History of SI Crohn's disease Chronic back pain/chronic pain Asthma GERD Allergic rhinitis History of seizure Migraine headache PSHX: Left knee surgery Ankle surgery Hysterectomy Gastric bypass surgery SOCHX: Resides in: [facility] Marital Status: Kids: 3 Employment: Unemployed Tobacco use: Denies ETOH: Denies Illicit Drugs: Denies IV Drug Use: Denies Tattoos done unprofessionally: Denies FAMHX: Mother: Alive, CAD, thyroid disorder, NAFLD Father: Alive, his stream of kidney stones Siblings: 2 brothers Alive, well Children: Alive, well Unexpected deaths due to medical reasons: None. ROS: As noted in HPI, otherwise 11pt ROS of systems reviewed and remarkable only for LMP NA, hysterectomy. PE: GEN: 36 yo F, appears stated age. Well-nourished, well developed. No acute distress. Alert and oriented x 3. Avoids eye contact. HEENT: Normocephalic, atraumatic. Pupils are equal, round, and reactive to light. Extraocular movements are intact. No nystagmus appreciated. Sclera are nonicteric. Conjunctiva without injection. Nose midline. Nasal turbinates without bogginess. EACs both patent BL. TMs both visualized and shultz with good cone of light, no bulging or erythema. No facial asymmetry. Moist mucous membranes. Dentition fair. Pharynx pink and moist, no cobblestoning. Neck supple , trachea midline. No lymphadenopathy or thyromegaly appreciated. CHEST: Regular rate and rhythm, +S1, +S2 LUNGS: Clear to auscultation bilaterally. No wheezes, rales, or rhonchi. Breathing appears symmetric and easy. Patient is speaking in full sentences. No accessory muscle use. ABD: Round, soft, non-tender, non-distended. +Bowel sounds throughout. Multiple abdominal healed surgical scars. No rebound or guarding. No costovertebral angle tenderness. EXT: Pulses 2+ bilaterally dorsalis pedis and radial. No lower extremity edema appreciated. SKIN: [place], dry, warm. Capillary refill <2sec. No rashes. NEURO: Alert and oriented x 3. Cranial nerves III-XII are intact. No focal deficits appreciated. EK04/15/17 SINUS RHYTHM LOW QRS VOLTAGE IN PRECORDIAL LEADS AND LIMB POSSIBLE RIGHT VENTRICULAR CONDUCTION DELAY MODERATE T-WAVE ABNORMALITY, CONSIDER ANTERIOR ISCHEMIA Left axis deviation A&P: 36 yo F admitted to [facility] from 04/15/17-04/17/17 related to elevated CK level, transferred to [facility] for bipolar disorder, 1. Psych. Plan per Psychiatry. EKG on file. 2. Elevated CK. Continuing to trend downward. Continue oral intake. 3. Borderline EKG. No cardiac signs or symptoms appreciated on exam, follow with PCP. 4. Follow up with PCP on discharge. 5. History of Crohn's disease. Monitor. 6. Chronic back pain/chronic pain. Patient is currently remains on MS Contin 30 mg by mouth twice a day, 15 mg every 4 as needed. ISTOP is obtained reference #[id number] indicating MS Contin 30 mg tablets #60 dispensed 04/05/17. Percocet 5/325 #120 tablets dispensed 04/05/[address] Costello. Would recommend pain management opinion if needed. 7. GERD. Continue Prilosec 40 mg by mouth twice a day. 8. Allergic rhinitis. Continue Claritin 10 mg by mouth daily. 9. Asthma. Continue albuterol 2 puffs every 4 hours as needed. 10. Hypernatremia. Sodium noted to be 148. Recheck CMP in a.m. 11. Macrocytic Anemia/pancytopenia. Iron studies, B12, folate. Update CBC in a.m. Peripheral smear. 12. History of seizure. Patient states she takes Keppra for her seizures. Continue Keppra 500 mg by mouth twice a day. 13. Migraine headache. Continue Imitrex 50 mg by mouth as needed at onset of headache. 14. Staff member Shanel present throughout exam. Vital Signs Vital Signs Date Time Temp Pulse Resp B/P (MAP) Pulse Ox O2 Delivery O2 Flow Rate FiO2 12/5/17 08:18 16 04/18/17 07:00 97.1 71 123/61 (81) 04/17/17 20:34 97 Room Air Laboratory Data Labs 24H Item Value Date Time White Blood Count 2.9 10^3/uL L 04/17/17 0524 Red Blood Count 2.88 10^6/uL L 04/17/17 0524 Hemoglobin 10.0 g/dl L 04/17/17 0524 Hematocrit 30.7 % L 04/17/17 0524 Mean Corpuscular Volume 106.6 fl H 04/17/17 0524 Mean Corpuscular Hemoglobin 34.7 pg H 04/17/17 0524 Mean Corpuscular Hemoglobin Concent 32.6 g/dl 04/17/17 0524 Red Cell Distribution Width 13.4 % 04/17/17 0524 Platelet Count 131 10^3/uL L 04/17/17 0524 Sodium Level 148 MEQ/L H 04/17/17 0524 Potassium Level 3.8 MEQ/L 04/17/17 0524 Chloride Level 118 MEQ/L H 04/17/17 0524 Carbon Dioxide Level 21 MEQ/L 04/17/17 0524 Anion Gap 9 MEQ/L 04/17/17 0524 Blood Urea Nitrogen 8 MG/DL 04/17/17 0524 Creatinine 0.61 MG/DL 04/17/17 0524 Glomerular Filtration Rate > 60.0 04/17/17 0524 Fasting Glucose 68 MG/DL L 04/17/17 0524 Calcium Level 7.3 MG/DL L 04/17/17 0524 Total Bilirubin 0.6 MG/DL 04/17/17 0524 Direct Bilirubin 0.3 MG/DL H 04/17/17 0524 Aspartate Amino Transf (AST/SGOT) 122 U/L H 04/17/17 0524 Alanine Aminotransferase (ALT/SGPT) 56 U/L 04/17/17 0524 Alkaline Phosphatase 62 U/L 04/17/17 0524 Total Creatine Kinase 218 U/L H 04/17/17 0524 Total Protein 4.2 GM/DL L 04/17/17 0524 Albumin 1.4 GM/DL L # 04/17/17 0524 Albumin/Globulin Ratio 0.50 L 04/17/17 0524 Iron Level 110 UG/DL 04/15/17 0554 Total Iron Binding Capacity 111 UG/DL L 04/15/17 0554 Transferrin % Saturation 99.1 % H 04/15/17 0554 Ferritin 154 NG/ML 04/15/17 0554 Vitamin B12 Level 724 PG/ML 04/15/17 0554 Folate 12.2 NG/ML 04/15/17 0554 Home Medications Scheduled Conjugated Estrogens (Premarin) 1.25 Mg Tab, 1.25 MG PO DAILY Fluoxetine Hcl (Fluoxetine HCl) 40 Mg Cap, 40 MG PO DAILY Levetiracetam (Keppra) 500 Mg Tab, 500 MG PO BID Loratadine (Loratadine) 10 Mg Tab, 10 MG PO DAILY Morphine Sulfate (Morphine Sulfate ER) 30 Mg Tabcr, 30 MG PO TID Omeprazole (Omeprazole) 40 Mg Cap, 40 MG PO BID Quetiapine Fumarate (Seroquel Xr) 300 Mg Theresa, 600 MG PO QHS Scheduled PRN Albuterol Sulfate (Ventolin Hfa) 108 Mcg/Act Aer, 2 PUFFS INH Q4H PRN for SHORTNESS OF BREATH Ondansetron HCl (Ondansetron HCl) 8 Mg Tab, 8 MG PO TID PRN for NAUSEA Oxycodone/Acetaminophen (Oxycodone/Acetaminophen 5-325 mg) 1 Tab Tab, 1 TAB PO QID PRN for PAIN SCALE 6-10 Sumatriptan Succinate (Sumatriptan Succinate) 50 Mg Tab, 50 MG PO DAILY PRN for MIGRAINE Allergies Coded Allergies: Adalimumab (Verified Allergy, Intermediate, 04/14/17) Tramadol (Verified Allergy, Intermediate, 04/14/17) Sarah Estrada Apr 18, 2017 09:09
[2017-04-18] MEDS: levETIRAcetam 250MG TABLET (KEPPRA) PO SCH ×2 (09:58→20:05)
[2017-04-18] MEDS: lamoTRIgine 25 MG TAB PO SCH ×2 (10:32→20:06)
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
[2017-04-18] MEDS: MORPHINE 15 MG SA TAB PO PRN ×2 (13:26→18:02)
[2017-04-18 18:00] VITALS: BP 104/61
[2017-04-18] MEDS: QUEtiapine FUMARATE 100 MG TAB PO SCH (20:05)
[2017-04-18] MEDS ORDERED: LORazepam 2 MG TAB PO ONE (21:30)
[2017-04-18] MEDS ORDERED: HALOPERIDOL 10 MG TAB PO ONE (21:30)
[2017-04-18] MEDS ORDERED: diphenhydrAMINE 50 MG CAP PO ONE (21:30)
[2017-04-18] MEDS: SUMAtriptan SUCCINATE 25 MG TAB PO PRN (21:36)
[2017-04-19] MEDS: SUMAtriptan SUCCINATE 25 MG TAB PO PRN (03:30)
[2017-04-19] MEDS: MORPHINE 15 MG SA TAB PO PRN (03:32)
[2017-04-19 06:40] VITALS: BP 104/55
[2017-04-19] MEDS: MORPHINE 15 MG SA TAB PO SCH ×2 (08:13→20:27)
[2017-04-19] MEDS: PARoxetine 10MG TABLET PO SCH (08:13)
[2017-04-19] MEDS: LORATADINE 10 MG TAB PO SCH (08:13)
[2017-04-19] MEDS: ACETAMINOPHEN 500 MG TAB PO SCH ×2 (08:13→20:26)
[2017-04-19] MEDS: lamoTRIgine 25 MG TAB PO SCH ×2 (08:13→20:26)
[2017-04-19] MEDS: OMEPRAZOLE 20 MG CAP PO SCH ×2 (08:14→20:26)
[2017-04-19] MEDS: FLUoxetine 10 MG CAP PO SCH (08:14)
[2017-04-19] MEDS: levETIRAcetam 250MG TABLET (KEPPRA) PO SCH ×2 (08:14→20:26)
[2017-04-19 08:40] LABS: MEAN CORPUSCULAR HEMOGLOBIN 33.9 pg (27.0-33.0); MEAN CORPUSCULAR VOLUME 106.1 fl (80.0-96.0); PLATELET COUNT, AUTOMATED 144 10^3/uL (150-450); RED CELL DISTRIBUTION WIDTH 13.5 % (11.5-14.5); WHITE BLOOD COUNT 3.7 10^3/uL (4.0-10.0)
[2017-04-19 08:45] LABS: ALBUMIN 1.9 GM/DL (3.2-5.2); ALBUMIN/GLOBULIN RATIO 0.68 (1.00-1.93); ALKALINE PHOSPHATASE 82 U/L (45-117); ALT/SGPT 51 U/L (12-78); ANION GAP 7 MEQ/L (8-16); AST/SGOT 68 U/L (7-37); BILIRUBIN,TOTAL 0.4 MG/DL (0.2-1.0); BLOOD UREA NITROGEN 7 MG/DL (7-18); CALCIUM LEVEL 7.6 MG/DL (8.5-10.1); CARBON DIOXIDE LEVEL 26 MEQ/L (21-32); CHLORIDE LEVEL 114 MEQ/L (98-107); CREATININE FOR GFR 0.59 MG/DL (0.55-1.02); GLOMERULAR FILTRATION RATE > 60.0 (>60); GLUCOSE, FASTING 71 MG/DL (70-105); POTASSIUM SERUM 4.6 MEQ/L (3.5-5.1); SODIUM LEVEL 147 MEQ/L (136-145); TOTAL PROTEIN 4.7 GM/DL (6.4-8.2)
[2017-04-19 10:05] LABS: REASON FOR REVIEW COMPREHENSIVE REVIEW
[2017-04-19] MEDS: OLANZapine 5 MG TAB PO PRN ×2 (11:42→19:10)
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
[2017-04-19 18:00] VITALS: BP 125/81
[2017-04-19] MEDS: PERCOCET 5MG/325MG TAB PO PRN (18:31)
[2017-04-19] MEDS: QUEtiapine FUMARATE 100 MG TAB PO SCH (20:26)
[2017-04-20] MEDS: PERCOCET 5MG/325MG TAB PO PRN ×3 (03:30→19:12)
[2017-04-20] MEDS: OLANZapine 5 MG TAB PO PRN (03:30)
[2017-04-20 07:30] VITALS: BP 102/51
[2017-04-20] MEDS: MORPHINE 15 MG SA TAB PO SCH ×2 (08:07→21:26)
[2017-04-20] MEDS: PARoxetine 10MG TABLET PO SCH (08:07)
[2017-04-20] MEDS: levETIRAcetam 250MG TABLET (KEPPRA) PO SCH ×2 (08:07→20:06)
[2017-04-20] MEDS: OMEPRAZOLE 20 MG CAP PO SCH ×2 (08:08→20:07)
[2017-04-20] MEDS: lamoTRIgine 25 MG TAB PO SCH ×2 (08:08→20:06)
[2017-04-20] MEDS: LORATADINE 10 MG TAB PO SCH (08:08)
[2017-04-20] MEDS: FLUoxetine 10 MG CAP PO SCH (08:08)
[2017-04-20] MEDS: ACETAMINOPHEN 500 MG TAB PO SCH ×2 (08:08→21:25)
[2017-04-20] MEDS: SUMAtriptan SUCCINATE 25 MG TAB PO PRN (12:25)
--- NOTE | 2017-04-20 16:03 | MHIPN ---
DATE: 04/20/2017 HISTORY: A 36-year-old female with a history of bipolar disorder, Asperger syndrome, attention deficit hyperactivity disorder, admitted with depression and suicidal ideation. MEDICATIONS: - Prozac 10 mg by mouth every morning - Paxil 10 mg by mouth every morning - Seroquel 100 mg by mouth at bedtime - Lamictal 25 mg by mouth twice a day SUBJECTIVE: "I'm feeling very depressed." OBJECTIVE: Patient continues depressed with psychomotor retardation. No interaction with other patients and staff. Stays in her room. Patient continues to report suicidal thoughts and has been on one-to-one. Patient is david for safety and willing to tell the nurses if any suicidal thought returns. Patient is tolerating well the medication. MENTAL STATUS EXAMINATION: Patient dressed in [facility]. Has poor eye contact. Speech is slow and monotone. Mood is depressed and anxious. Affect is restricted. No delusions or hallucinations. Memory, attention, and concentration are fair. Patient continues with suicidal ideation. Insight and judgment are poor. ASSESSMENT: 1. Depression. 2. Suicidal ideation. 3. Attention deficit hyperactivity disorder. 4. Asperger's. PLAN: 1. Discontinue Prozac. 2. Increase Paxil 20 mg by mouth every morning. 3. Continue Seroquel 100 mg by mouth at bedtime. 4. Continue Lamictal 25 mg by mouth twice a day.
[2017-04-20 18:00] VITALS: BP 122/58
[2017-04-20] MEDS: QUEtiapine FUMARATE 100 MG TAB PO SCH (20:07)
[2017-04-21 06:37] VITALS: BP 120/81
[2017-04-21] MEDS: PARoxetine 20 MG TAB PO SCH (08:34)
[2017-04-21] MEDS: levETIRAcetam 250MG TABLET (KEPPRA) PO SCH ×2 (08:34→20:32)
[2017-04-21] MEDS: OMEPRAZOLE 20 MG CAP PO SCH ×2 (08:34→20:32)
[2017-04-21] MEDS: ACETAMINOPHEN 500 MG TAB PO SCH ×2 (08:34→20:32)
[2017-04-21] MEDS: LORATADINE 10 MG TAB PO SCH (08:34)
[2017-04-21] MEDS: lamoTRIgine 25 MG TAB PO SCH ×2 (08:35→20:32)
[2017-04-21] MEDS: MORPHINE 15 MG SA TAB PO SCH ×2 (09:24→20:33)
--- NOTE | 2017-04-21 10:16 | CR ---
DATE OF CONSULTATION: 04/20/2017 CHIEF COMPLAINT: Low back pain. HISTORY OF PRESENT ILLNESS: Belia is a 36-year-old female whom I am asked to see in inpatient mental health unit for chronic pain, on chronic opioid therapy. Follows with Dr. Costello at [facility]. Currently taking MS Contin 30 mg twice a day. The patient states Dr. Costello is slowly reducing narcotic pain medication with her and she is tolerating this fairly well. States that she used to be on higher doses and he has weaned her down over the past several months to her current level. Using oxycodone 5/325 up to four a day for moderate pain episodes. Finds current medicine somewhat effective. Reports long history of chronic low back pain. Denies precipitating event. Rating pain intensity as a 7/10. Pain is described as a constant aching pain. Denies change or increase in her chronic situation during this hospital stay or prior to hospital stay. Denies recent fever or illness or weight loss. Denies bowel or bladder incontinence. PAST MEDICAL HISTORY: Migraine headache, allergic rhinitis, history of seizure, gastroesophageal reflux disease, asthma, chronic back pain, Crohn's disease, depression, anxiety, bipolar disorder, Asperger syndrome, attention deficit hyperactivity disorder (ADHD). PAST SURGICAL HISTORY: section, left knee surgery, ankle surgery, hysterectomy, gastric bypass surgery. SOCIAL HISTORY: She is unemployed. She is . She has three children. Denies alcohol or tobacco use. Denies illicit drug use. REVIEW OF SYSTEMS: 10-point review of systems is negative except for reports and complaints noted in history of present illness. PHYSICAL EXAMINATION: Awake, alert. Flat affect. Good eye contact. VITAL SIGNS: 98.5, 77, 16, blood pressure 120/81. CARDIAC: S1, S2. Normal rate and rhythm. RESPIRATORY: Lung sounds clear. Respirations nonlabored. NEUROMUSCULAR: Muscle strength testing of upper and lower extremities 5/5. Reporting normal sensation to light touch in lower extremities. ASSESSMENT: Chronic low back pain. PLAN: Continue current chronic pain medications. This would include MS Contin 30 mg twice a day and oxycodone 5/325 every 6 hours as needed for severe pain episodes. Continue followup on discharge with Dr. Costello. Recommend continued efforts to decrease and discontinue chronic narcotic therapy. Encourage physical therapy and rehabilitation services. Thank you for allowing us to participate in the care of your patient. If you have any questions, please do not hesitate to contact me. Sincerely, DIONISIO Ordaz [facility]
[2017-04-21] MEDS: PERCOCET 5MG/325MG TAB PO PRN (12:48)
[2017-04-21] MEDS: CEPACOL LOZENGE PO PRN ×2 (17:14→21:40)
--- NOTE | 2017-04-21 17:40 | MHIPN ---
DATE: 04/21/2017 HISTORY: A 36-year-old female with history of bipolar disorder, Asperger's, attention deficit hyperactivity disorder (ADHD), admitted for depression and suicidal ideation. MEDICATIONS: - Paxil 20 mg by mouth every morning - Seroquel 100 mg by mouth at bedtime - Lamictal 25 mg by mouth twice a day SUBJECTIVE: "I'm feeling very depressed." OBJECTIVE: Patient continues depressed with psychomotor retardation. Patient stays in her room most of the day. Very minimal interaction with other patients and staff. Continues to report suicidal ideation but is david for safety. Patient tolerated well the medication. Pain consult is in progress. MENTAL STATUS EXAMINATION: Patient is dressed in [facility]. Has poor eye contact. Speech is slow and monotone. Mood is depressed and anxious. Affect is restricted. No delusions. No hallucinations. Memory, attention, and concentration are fair. Patient continues to have suicidal ideation. Insight and judgment are poor. ASSESSMENT: 1. Depression. 2. Suicidal ideation. 3. Asperger's. 4. Attention deficit hyperactivity disorder. PLAN: 1. Continue Paxil 20 mg by mouth every morning. 2. Continue Seroquel 100 mg by mouth at bedtime. 3. Continue Lamictal 25 mg by mouth twice a day. 4. Continue medication management, individual and group therapy.
[2017-04-21 18:00] VITALS: BP 107/68
[2017-04-21] MEDS: QUEtiapine FUMARATE 50 MG TAB PO SCH (20:31)
[2017-04-21] MEDS: QUEtiapine FUMARATE 100 MG TAB PO PRN (22:49)
[2017-04-22] MEDS: PERCOCET 5MG/325MG TAB PO PRN ×5 (01:18→23:50)
[2017-04-22] MEDS: CEPACOL LOZENGE PO PRN ×4 (01:19→23:49)
[2017-04-22 06:39] VITALS: BP 90/54
[2017-04-22] MEDS: LORATADINE 10 MG TAB PO SCH (08:32)
[2017-04-22] MEDS: MORPHINE 15 MG SA TAB PO SCH ×2 (08:32→20:14)
[2017-04-22] MEDS: ACETAMINOPHEN 500 MG TAB PO SCH ×2 (08:33→20:15)
[2017-04-22] MEDS: PARoxetine 20 MG TAB PO SCH (08:33)
[2017-04-22] MEDS: levETIRAcetam 250MG TABLET (KEPPRA) PO SCH ×2 (08:33→20:15)
[2017-04-22] MEDS: lamoTRIgine 25 MG TAB PO SCH ×2 (08:33→20:15)
[2017-04-22] MEDS: OMEPRAZOLE 20 MG CAP PO SCH ×2 (08:33→20:13)
[2017-04-22 18:00] VITALS: BP 124/82
[2017-04-22] MEDS: QUEtiapine FUMARATE 50 MG TAB PO SCH (20:13)
[2017-04-23] MEDS: PERCOCET 5MG/325MG TAB PO PRN ×3 (05:48→19:49)
[2017-04-23 06:47] VITALS: BP 89/64
[2017-04-23] MEDS: MORPHINE 15 MG SA TAB PO SCH ×2 (08:15→21:31)
[2017-04-23] MEDS: OMEPRAZOLE 20 MG CAP PO SCH ×2 (08:15→21:30)
[2017-04-23] MEDS: ACETAMINOPHEN 500 MG TAB PO SCH ×2 (08:16→21:30)
[2017-04-23] MEDS: lamoTRIgine 25 MG TAB PO SCH ×2 (08:16→21:30)
[2017-04-23] MEDS: LORATADINE 10 MG TAB PO SCH (08:16)
[2017-04-23] MEDS: PARoxetine 20 MG TAB PO SCH (08:16)
[2017-04-23] MEDS: levETIRAcetam 250MG TABLET (KEPPRA) PO SCH ×2 (08:16→21:30)
[2017-04-23] MEDS: CEPACOL LOZENGE PO PRN ×2 (13:48→19:17)
[2017-04-23 18:00] VITALS: BP 136/80
[2017-04-23] MEDS: QUEtiapine FUMARATE 50 MG TAB PO SCH (21:30)
[2017-04-23] MEDS: QUEtiapine FUMARATE 100 MG TAB PO PRN (21:31)
[2017-04-24] MEDS: PERCOCET 5MG/325MG TAB PO PRN ×3 (04:03→18:07)
[2017-04-24 06:00] VITALS: BP 108/72
[2017-04-24] MEDS: PARoxetine 20 MG TAB PO SCH (08:16)
[2017-04-24] MEDS: ACETAMINOPHEN 500 MG TAB PO SCH ×2 (08:16→22:16)
[2017-04-24] MEDS: CEPACOL LOZENGE PO PRN (08:16)
[2017-04-24] MEDS: SUMAtriptan SUCCINATE 25 MG TAB PO PRN ×2 (08:16→23:24)
[2017-04-24] MEDS: OMEPRAZOLE 20 MG CAP PO SCH ×2 (08:16→22:15)
[2017-04-24] MEDS: lamoTRIgine 25 MG TAB PO SCH (08:17)
[2017-04-24] MEDS: MORPHINE 15 MG SA TAB PO SCH ×3 (08:17→22:16)
[2017-04-24] MEDS: levETIRAcetam 250MG TABLET (KEPPRA) PO SCH ×2 (08:17→22:15)
[2017-04-24] MEDS: LORATADINE 10 MG TAB PO SCH (08:17)
[2017-04-24] MEDS: LORazepam 0.5 MG TAB PO PRN ×2 (14:43→20:49)
--- NOTE | 2017-04-24 15:35 | MHIPN ---
DATE: 04/24/2017 VITAL SIGNS: Temperature 99.1, pulse 73, respiratory rate 16, blood pressure 108/72. CURRENT MEDICATIONS: - Paxil 20 mg every morning - Seroquel 250 mg at bedtime - Seroquel 100 mg at bedtime as needed - Lamictal 25 mg twice a day HISTORY OF PRESENT ILLNESS: This is a 36-year-old white female with a history of bipolar disorder, Asperger's syndrome, and attention deficit hyperactivity disorder (ADHD). The patient lives with her three children. She is on social security disability (SSD). The patient had been depressed prior to admission. She had lost 40 pounds. She had suicidal ideation with a plan. She had been on Prozac and high-dose Seroquel prior. She is having prominent psychotic symptoms. She hears voices all the time. They talk about the weather or make noises. They fight with each other and tell her to do bad things. The voices seemed more prominent once Dr. Zarate lowered her dose of Seroquel. She is not sleeping well again either. She thinks her depression might be somewhat better. She is placed on Paxil and Lamictal at the same time, making it hard to differentiate. More than likely, she is getting benefit from the Paxil. Her Lamictal dose though well-tolerated will be discontinued. She is concerned about her severe insomnia. She only gets about two hours of sleep at night. Even with 800 mg of Seroquel, she slept poorly. We discussed a trial of trazodone. She has never been on trazodone before. The patient had blackouts in the past from Ambien. MENTAL STATUS EXAMINATION: The patient is alert, oriented and cooperative. Affect is flat. The patient reports anxiety but feels less depressed. Memory functions appear intact. She is no longer having suicidal thoughts. Insight and judgment appear fair. DIAGNOSES: 1. Bipolar disorder, depressed. 2. Asperger's syndrome. 3. Attention deficit hyperactivity disorder (ADHD). PLAN: Discontinue Lamictal. Increase Seroquel at bedtime. Start trial of trazodone at bedtime. Start low-dose Ativan as needed for anxiety symptoms.
[2017-04-24 18:00] VITALS: BP 134/88
[2017-04-24] MEDS ORDERED: traZODone 100 MG TAB PO SCH (21:00)
[2017-04-24] MEDS: QUEtiapine FUMARATE 200 MG TAB PO SCH (22:15)
[2017-04-25] MEDS: QUEtiapine FUMARATE 100 MG TAB PO PRN (01:14)
[2017-04-25] MEDS: OLANZapine 5 MG TAB PO PRN ×2 (02:39→09:31)
[2017-04-25] MEDS: PERCOCET 5MG/325MG TAB PO PRN ×3 (02:40→14:34)
[2017-04-25 06:58] VITALS: BP 135/76
[2017-04-25] MEDS: LORazepam 0.5 MG TAB PO PRN (08:06)
[2017-04-25] MEDS: MORPHINE 15 MG SA TAB PO SCH ×3 (08:06→20:16)
[2017-04-25] MEDS: PARoxetine 10MG TABLET PO SCH (08:06)
[2017-04-25] MEDS: ACETAMINOPHEN 500 MG TAB PO SCH ×2 (08:06→20:17)
[2017-04-25] MEDS: levETIRAcetam 250MG TABLET (KEPPRA) PO SCH ×2 (08:06→20:17)
[2017-04-25] MEDS: OMEPRAZOLE 20 MG CAP PO SCH ×2 (08:07→20:18)
[2017-04-25] MEDS: LORATADINE 10 MG TAB PO SCH (08:08)
[2017-04-25] MEDS: CEPACOL LOZENGE PO PRN (11:50)
--- NOTE | 2017-04-25 14:08 | MHIPN ---
DATE: 04/25/2017 VITAL SIGNS: Temperature 96.4, pulse 67, respirations 18, blood pressure 135/76. CURRENT MEDICATIONS: - Paxil 30 mg every morning - Seroquel 400 mg at bedtime - Seroquel 100 mg at bedtime as needed - Zyprexa 5 mg every 6 hours as needed - trazodone 100 mg at bedtime HISTORY OF PRESENT ILLNESS: Patient still reports significant insomnia. She tossed and turned all night. The Seroquel was not helpful for sleep. The as needed Ativan has not been helpful either. She got a as needed dose of Zyprexa 5 mg with marginal benefit. She has been on trazodone with marginal benefit as well. She still reports prominent psychotic symptoms. The voices are quite loud. She hears music as well. She thinks the hallucinations lead to migraines headaches. Her appetite is good. She states her depression is less prominent since being on the Paxil. The patient has a history of Crohn's disease. She has had multiple resections of her bowel, which likely has interfered with absorption. Subsequently, she likely needs to be on higher doses of psychotropics. We discussed a standing dose of Zyprexa at bedtime to help with sleep and psychosis. MENTAL STATUS EXAMINATION: Patient appears somewhat sleepy from lack of sleep last night, otherwise she is oriented times three and cooperative. Affect remains flat. Depression is improved but anxiety is still problematic. The patient is not suicidal. Insight and judgment seem fair. Auditory hallucinations are quite prominent. DIAGNOSIS: Bipolar disorder, depressed, with psychotic features. Rule out schizoaffective disorder. Asperger's syndrome. Attention deficit hyperactivity disorder (ADHD). PLAN: Zyprexa 15 mg by mouth at bedtime. Increase dose of trazodone to 150 mg at bedtime.
[2017-04-25] MEDS: LORazepam 1 MG TAB PO PRN (14:33)
[2017-04-25 18:19] VITALS: BP 111/55
[2017-04-25] MEDS: NYSTATIN 100,000 UNITS/GM TOPICAL PWD 15 GM TOP SCH (20:15)
[2017-04-25] MEDS: QUEtiapine FUMARATE 200 MG TAB PO SCH (20:17)
[2017-04-25] MEDS ORDERED: traZODone 50 MG TAB PO SCH (21:00)
[2017-04-25] MEDS ORDERED: OLANZapine 5 MG TAB PO SCH (21:00)
[2017-04-26] MEDS: PERCOCET 5MG/325MG TAB PO PRN ×3 (03:30→19:11)
[2017-04-26 06:40] VITALS: BP 105/56
[2017-04-26] MEDS: LORATADINE 10 MG TAB PO SCH (08:22)
[2017-04-26] MEDS: levETIRAcetam 250MG TABLET (KEPPRA) PO SCH ×2 (08:23→20:34)
[2017-04-26] MEDS: OMEPRAZOLE 20 MG CAP PO SCH ×2 (08:23→20:34)
[2017-04-26] MEDS: MORPHINE 15 MG SA TAB PO SCH ×3 (08:23→22:18)
[2017-04-26] MEDS: PARoxetine 10MG TABLET PO SCH (08:24)
[2017-04-26] MEDS: OLANZapine 5 MG TAB PO PRN (08:24)
[2017-04-26] MEDS: ACETAMINOPHEN 500 MG TAB PO SCH ×2 (08:24→20:35)
[2017-04-26] MEDS: NYSTATIN 100,000 UNITS/GM TOPICAL PWD 15 GM TOP SCH ×2 (08:26→20:35)
[2017-04-26] MEDS: CEPACOL LOZENGE PO PRN ×2 (12:22→17:25)
[2017-04-26 13:32] LABS: BASO % 0.6 % (0.0-1.0); EOS % 0.9 % (0.0-3.0); LYMPH # 1.1 10^3/uL (1.5-4.5); LYMPH % 33.9 % (24.0-44.0); MEAN CORPUSCULAR HGB CONC 32.2 g/dl (32.0-36.5); MEAN CORPUSCULAR VOLUME 108.4 fl (80.0-96.0); MONO # 0.3 10^3/uL (0.0-0.8); MONO % 9.1 % (0.0-5.0); NEUTROPHILS # 1.8 10^3/uL (1.8-7.7); NEUTROPHILS % 55.5 % (36.0-66.0); PLATELET COUNT, AUTOMATED 186 10^3/uL (150-450); RED CELL DISTRIBUTION WIDTH 14.1 % (11.5-14.5); WHITE BLOOD COUNT 3.3 10^3/uL (4.0-10.0)
[2017-04-26 14:00] LABS: ANION GAP 7 MEQ/L (8-16); BLOOD UREA NITROGEN 14 MG/DL (7-18); CALCIUM LEVEL 7.6 MG/DL (8.5-10.1); CARBON DIOXIDE LEVEL 27 MEQ/L (21-32); CHLORIDE LEVEL 110 MEQ/L (98-107); CREATININE FOR GFR 0.72 MG/DL (0.55-1.02); GLOMERULAR FILTRATION RATE > 60.0 (>60); GLUCOSE, FASTING 75 MG/DL (70-105); POTASSIUM SERUM 4.4 MEQ/L (3.5-5.1); SODIUM LEVEL 144 MEQ/L (136-145)
--- NOTE | 2017-04-26 14:02 | MHIPN ---
DATE: 04/26/2017 VITAL SIGNS: Temperature 98.3, pulse 81, respirations 18,BP 118/74 CURRENT MEDICATION: - Paxil 30 mg every morning - Seroquel 400 mg nightly - Zyprexa 15 mg nightly - trazodone 150 mg nightly HISTORY OF PRESENT ILLNESS: Patient still reports sever insomnia. However, she did sleep a few more hours last night, which she is happy with. She is still reporting frequent auditory hallucinations. She hears it especially at night, mostly music, singing and songs. This keeps her up at night as well. She hears voices during the daytime telling her to do bad things but she ignores it. She states her depression level is a 4/10, which is somewhat improved. Her appetite has been good. She is working with staff on one-on-one therapy. Attendance at groups has improved. Coping skills has improved. Patient found some benefit from the Zyprexa last night. She is going to increase the dosage. As mentioned previously, she has had numerous bowel resections with likely malabsorption syndrome. Subsequently, we will give her an increased dose of 30 mg. She request increase in the trazodone dosage as well, which is well tolerated. MENTAL STATUS EXAMINATION: Patient is more alert today. Patient still reports depression but not as prominent. Affect remains flat. Anxiety is mild to moderate. She denies current suicidal ideation. Auditory hallucinations are still quite prominent. She denies paranoia, however. No signs of thought disorder. No signs of organicity. 0DIAGNOSES: Bipolar disorder, depressed, with psychotic features. Rule out schizoaffective disorder, depressed. Asperger's syndrome. Attention deficit hyperactivity disorder (ADHD). PLAN: Increase Zyprexa to 30 mg nightly. Increase trazodone to 200 mg nightly. Reduce Seroquel to 300 mg nightly due to polypharmacy issues. MTDD
[2017-04-26] MEDS: LORazepam 1 MG TAB PO PRN (17:24)
[2017-04-26 18:00] VITALS: BP 113/71
[2017-04-26] MEDS: QUEtiapine FUMARATE 100 MG TAB PO SCH (20:34)
[2017-04-26] MEDS: traZODone 100 MG TAB PO SCH (20:34)
[2017-04-26] MEDS: OLANZapine 5 MG TAB PO SCH (20:35)
[2017-04-27] MEDS: PERCOCET 5MG/325MG TAB PO PRN ×2 (01:37→11:29)
[2017-04-27] MEDS: CEPACOL LOZENGE PO PRN ×3 (01:38→19:12)
[2017-04-27 06:56] VITALS: BP 103/58
[2017-04-27] MEDS: NYSTATIN 100,000 UNITS/GM TOPICAL PWD 15 GM TOP SCH ×2 (08:42→19:12)
[2017-04-27] MEDS: OMEPRAZOLE 20 MG CAP PO SCH ×2 (08:42→20:14)
[2017-04-27] MEDS: ACETAMINOPHEN 500 MG TAB PO SCH ×2 (08:42→20:15)
[2017-04-27] MEDS: PARoxetine 10MG TABLET PO SCH (08:43)
[2017-04-27] MEDS: MORPHINE 15 MG SA TAB PO SCH ×3 (08:43→20:16)
[2017-04-27] MEDS: LORATADINE 10 MG TAB PO SCH (08:43)
[2017-04-27] MEDS: levETIRAcetam 250MG TABLET (KEPPRA) PO SCH ×2 (08:43→20:15)
[2017-04-27] MEDS: OLANZapine 5 MG TAB PO PRN (12:52)
[2017-04-27] MEDS: NYSTATIN 500,000 U/5 ML SUSP UDC PO SCH ×3 (13:00→20:15)
--- NOTE | 2017-04-27 14:05 | MHIPN ---
DATE: 04/27/2017 VITAL SIGNS: Temperature 98.6, pulse 89, respirations 18, blood pressure 103/58. CURRENT MEDICATIONS: - Paxil 30 mg every morning - Keppra 500 mg twice a day - Seroquel 300 mg at bedtime - trazodone 200 mg at bedtime - Zyprexa 30 mg at bedtime HISTORY OF PRESENT ILLNESS: Patient still reports psychotic symptoms but they are less prominent since being on the Zyprexa. The voices are improved, especially during the daytime, which has been helpful. She still hears them prominently in the evening before she takes her bedtime Zyprexa, however. She hears the sounds of music and drums coming from a radio or television. She states her depressive symptoms are mild. She still reports some anxiety, especially around male patients. The patient's CBC and differential were repeated. She does have evidence of macrocytic anemia and has been recommended for a hematology consult upon discharge. The patient has not been attending the group therapy program. Family have called concerned about the status of the children. The patient claims that the neighbor is watching her children during the week. MENTAL STATUS EXAMINATION: Depression appears to be in the mild range. She denies suicidal thoughts. Auditory hallucinations persist but not as prominent. She reports some possible paranoia about male patients. Insight and judgment are fair. No signs of dangerousness. DIAGNOSES: Bipolar disorder, depressed, with psychotic features. Rule out schizoaffective disorder, depressed. Asperger's syndrome. Attention deficit hyperactivity disorder (ADHD). PLAN: Continue psychotropics. Staff working on discharge planning, hematology consult upon discharge.
[2017-04-27 18:00] VITALS: BP 95/65
[2017-04-27] MEDS: OLANZapine 5 MG TAB PO SCH (20:15)
[2017-04-27] MEDS: traZODone 100 MG TAB PO SCH (21:50)
[2017-04-27] MEDS: QUEtiapine FUMARATE 100 MG TAB PO SCH (21:50)
[2017-04-28] MEDS: PERCOCET 5MG/325MG TAB PO PRN ×2 (01:20→11:11)
[2017-04-28 06:50] VITALS: BP 93/46
[2017-04-28] MEDS: NYSTATIN 500,000 U/5 ML SUSP UDC PO SCH ×4 (08:07→22:39)
[2017-04-28] MEDS: PARoxetine 10MG TABLET PO SCH (08:07)
[2017-04-28] MEDS: MORPHINE 15 MG SA TAB PO SCH ×3 (08:07→22:40)
[2017-04-28] MEDS: OMEPRAZOLE 20 MG CAP PO SCH ×2 (08:08→22:39)
[2017-04-28] MEDS: ACETAMINOPHEN 500 MG TAB PO SCH ×2 (08:08→22:40)
[2017-04-28] MEDS: levETIRAcetam 250MG TABLET (KEPPRA) PO SCH ×2 (08:08→22:39)
[2017-04-28] MEDS: OLANZapine 5 MG TAB PO PRN ×2 (08:10→16:26)
[2017-04-28] MEDS: LORATADINE 10 MG TAB PO SCH (08:10)
[2017-04-28] MEDS: NYSTATIN 100,000 UNITS/GM TOPICAL PWD 15 GM TOP SCH ×2 (09:50→22:38)
[2017-04-28] MEDS: SUMAtriptan SUCCINATE 6 MG/0.5 ML VIAL SC PRN (13:17)
[2017-04-28] MEDS ORDERED: QUEtiapine FUMARATE 100 MG TAB PO PRN (15:15)
[2017-04-28] MEDS: risperiDONE 1 MG TAB PO SCH ×2 (16:25→22:39)
[2017-04-28 18:00] VITALS: BP 126/71
--- NOTE | 2017-04-28 19:58 | MHIPN ---
DATE: 04/28/2017 VITAL SIGNS: Temperature 96.0, pulse 82, respirations 14, blood pressure 93/46. CURRENT MEDICATIONS: - Zyprexa 30 mg at bedtime - trazodone 200 mg at bedtime - Seroquel 300 mg at bedtime - Paxil 30 mg every morning - Keppra 500 mg twice a day HISTORY OF PRESENT ILLNESS: The patient still reports prominent auditory hallucinations. The patient is not at baseline according to her brother who keeps close tabs on her situation. The patient reports mild to moderate depression. She is not currently suicidal. Appetite is not very good. The patient did not want Nystatin oral. She is still not sleeping well at night. She slept about 4 hours last night. She tosses and turns a lot. Her likely poor GI absorption is again reviewed. We discussed possible withdrawal on a long acting injectable antipsychotic such as Risperdal/Invega or Abilify. She has never been on any of these psychotropics. Her brother is in support of such a trial as she is unsure of her medication compliance at home. The patient is agreeable to a trial of Risperdal 1 mg four times a day. MENTAL STATUS EXAM: The patient remains mildly to moderately depressed. She is anxious. She is not suicidal. The patient still reports prominent auditory hallucinations. She is paranoid as well. Insight and judgment are fair. No current signs of dangerousness. Grooming and hygiene is poor. No signs of organicity. DIAGNOSES: Schizoaffective disorder, depressed. Asperger's syndrome. Attention deficit/hyperactivity disorder (ADHD). PLAN: Start trial of Risperdal 1 mg four times a day. No change in Zyprexa. Seroquel dose will start to be weaned off gradually over concerns of polypharmacy. If Risperdal is well tolerated then Invega Sustenna treatment trial will be initiated. The patient will obtain better blood levels given her malabsorption syndrome.
[2017-04-28] MEDS: OLANZapine 5 MG TAB PO SCH (22:39)
[2017-04-28] MEDS: QUEtiapine FUMARATE 100 MG TAB PO SCH (22:39)
[2017-04-28] MEDS: traZODone 100 MG TAB PO SCH (22:39)
[2017-04-29] MEDS: SUMAtriptan SUCCINATE 25 MG TAB PO PRN ×2 (02:47→03:54)
[2017-04-29] MEDS: PERCOCET 5MG/325MG TAB PO PRN ×3 (02:47→19:12)
[2017-04-29] MEDS: CEPACOL LOZENGE PO PRN ×2 (02:48→08:01)
[2017-04-29 06:41] VITALS: BP 111/70
[2017-04-29] MEDS: NYSTATIN 500,000 U/5 ML SUSP UDC PO SCH ×4 (09:10→21:23)
[2017-04-29] MEDS: NYSTATIN 100,000 UNITS/GM TOPICAL PWD 15 GM TOP SCH ×2 (09:10→21:24)
[2017-04-29] MEDS: PARoxetine 10MG TABLET PO SCH (09:11)
[2017-04-29] MEDS: OMEPRAZOLE 20 MG CAP PO SCH ×2 (09:11→21:25)
[2017-04-29] MEDS: LORATADINE 10 MG TAB PO SCH (09:11)
[2017-04-29] MEDS: risperiDONE 1 MG TAB PO SCH ×4 (09:11→21:25)
[2017-04-29] MEDS: levETIRAcetam 250MG TABLET (KEPPRA) PO SCH ×2 (09:12→21:25)
[2017-04-29] MEDS: MORPHINE 15 MG SA TAB PO SCH ×3 (09:12→21:25)
[2017-04-29] MEDS: ACETAMINOPHEN 500 MG TAB PO SCH ×2 (09:13→21:24)
[2017-04-29] MEDS: OLANZapine 5 MG TAB PO PRN (16:02)
[2017-04-29 18:39] VITALS: BP 118/72
[2017-04-29] MEDS: traZODone 100 MG TAB PO SCH (21:25)
[2017-04-29] MEDS: QUEtiapine FUMARATE 100 MG TAB PO SCH (21:25)
[2017-04-29] MEDS: OLANZapine 5 MG TAB PO SCH (21:25)
[2017-04-30] MEDS: PERCOCET 5MG/325MG TAB PO PRN ×3 (03:04→19:12)
[2017-04-30 06:40] VITALS: BP 98/54
[2017-04-30] MEDS: risperiDONE 1 MG TAB PO SCH ×4 (08:54→21:19)
[2017-04-30] MEDS: PARoxetine 10MG TABLET PO SCH (08:54)
[2017-04-30] MEDS: NYSTATIN 500,000 U/5 ML SUSP UDC PO SCH ×4 (08:54→21:19)
[2017-04-30] MEDS: LORATADINE 10 MG TAB PO SCH (08:54)
[2017-04-30] MEDS: OMEPRAZOLE 20 MG CAP PO SCH ×2 (08:54→21:19)
[2017-04-30] MEDS: levETIRAcetam 250MG TABLET (KEPPRA) PO SCH ×2 (08:54→21:19)
[2017-04-30] MEDS: MORPHINE 15 MG SA TAB PO SCH ×3 (08:55→21:20)
[2017-04-30] MEDS: NYSTATIN 100,000 UNITS/GM TOPICAL PWD 15 GM TOP SCH ×2 (08:55→21:19)
[2017-04-30] MEDS: ACETAMINOPHEN 500 MG TAB PO SCH ×2 (08:55→21:21)
[2017-04-30] MEDS: OLANZapine 5 MG TAB PO PRN (08:55)
[2017-04-30] MEDS: SUMAtriptan SUCCINATE 6 MG/0.5 ML VIAL SC PRN (14:02)
[2017-04-30 18:11] VITALS: BP 121/65
[2017-04-30] MEDS: OLANZapine 5 MG TAB PO SCH (22:05)
[2017-04-30] MEDS: QUEtiapine FUMARATE 100 MG TAB PO SCH (22:05)
[2017-04-30] MEDS: traZODone 100 MG TAB PO SCH (22:05)
[2017-05-01] MEDS: PERCOCET 5MG/325MG TAB PO PRN ×2 (04:28→12:30)
[2017-05-01 06:41] VITALS: BP 107/55
[2017-05-01] MEDS: ACETAMINOPHEN 500 MG TAB PO SCH ×2 (08:11→21:55)
[2017-05-01] MEDS: LORATADINE 10 MG TAB PO SCH (08:11)
[2017-05-01] MEDS: NYSTATIN 500,000 U/5 ML SUSP UDC PO SCH ×4 (08:11→21:51)
[2017-05-01] MEDS: OMEPRAZOLE 20 MG CAP PO SCH ×2 (08:11→21:52)
[2017-05-01] MEDS: levETIRAcetam 250MG TABLET (KEPPRA) PO SCH ×2 (08:11→21:53)
[2017-05-01] MEDS: risperiDONE 1 MG TAB PO SCH ×4 (08:11→21:52)
[2017-05-01] MEDS: PARoxetine 10MG TABLET PO SCH (08:11)
[2017-05-01] MEDS: NYSTATIN 100,000 UNITS/GM TOPICAL PWD 15 GM TOP SCH ×2 (08:12→21:56)
[2017-05-01] MEDS: MORPHINE 15 MG SA TAB PO SCH ×3 (08:12→21:53)
[2017-05-01] MEDS ORDERED: OLANZapine 5 MG TAB PO PRN (09:15)
--- NOTE | 2017-05-01 10:25 | IPNPDOC ---
Date Seen The patient was seen on 05/01/17. Progress Note HPI: 36 yo F admitted to [facility] from 04/15/17-04/17/17 related to elevated CK level, transferred to [facility] for bipolar disorder. Requested to re evaluate the pt this AM related to her reporting that she feels "shaky". She states she is known to have chronic hypoglycemia. She reports no other symptoms. Denies any fevers, chills, weakness, fatigue, ESTEVES, CP, SOB, cough, palpitations, abdominal pain, N/V/D or changes in bowel or bladder habits. PMHx: ADHD Asperger syndrome Bipolar disorder Anxiety Depression History of SI Crohn's disease Chronic back pain/chronic pain Asthma GERD Allergic rhinitis History of seizure Migraine headache PSHX: Left knee surgery Ankle surgery Hysterectomy Gastric bypass surgery PE: GEN: 36 yo F, thin and pale appearing. No acute distress. Alert and oriented x 3. HEENT: Normocephalic, atraumatic. Sclera are nonicteric. Conjunctiva without injection. No facial asymmetry. Moist mucous membranes. Pharynx pink and moist. CHEST: Regular rate and rhythm, +S1, +S2 LUNGS: Clear to auscultation bilaterally. No wheezes, rales, or rhonchi. Breathing appears symmetric and easy. Patient is speaking in full sentences. No accessory muscle use. ABD: Round, soft, non-tender, non-distended. +Bowel sounds throughout. Multiple abdominal healed surgical scars. No rebound or guarding. No costovertebral angle tenderness. EXT: No lower extremity edema appreciated. SKIN: No rashes. NEURO: Alert and oriented x 3. Cranial nerves III-XII are intact. No focal deficits appreciated. EK04/15/17 SINUS RHYTHM LOW QRS VOLTAGE IN PRECORDIAL LEADS AND LIMB POSSIBLE RIGHT VENTRICULAR CONDUCTION DELAY MODERATE T-WAVE ABNORMALITY, CONSIDER ANTERIOR ISCHEMIA Left axis deviation A&P: 36 yo F admitted to [facility] from 04/15/17-04/17/17 related to elevated CK level, transferred to [facility] for bipolar disorder, 1. Psych. Plan per Psychiatry. EKG on file. 2. H/O Elevated CK. WNL 04/26/17. CK this AM pending. 3. Borderline EKG. No cardiac signs or symptoms appreciated on exam, follow with PCP. 4. Follow up with PCP on discharge. 5. History of Crohn's disease. Monitor. 6. Chronic back pain/chronic pain. Pain Mgmt consult completed. ISTOP is obtained reference #[id number] indicating MS Contin 30 mg tablets #60 dispensed 04/05/17. Percocet 5/325 #120 tablets dispensed 04/05/[address] Costello. 7. GERD. Continue Prilosec 40 mg by mouth twice a day. 8. Allergic rhinitis. Continue Claritin 10 mg by mouth daily. 9. Asthma. Continue albuterol 2 puffs every 4 hours as needed. 10. H/O Hypernatremia. Sodium noted to be 144 04/26. Recheck CMP. 11. Macrocytic Anemia/pancytopenia. Iron studies, B12, folate completed. Peripheral smear 04/20/17. Chronic macrocytic anemia, with low TIBC and markedly elevated transferrin saturation. No abnormal cells or poikilocytosis is noted. IN view of high transferrin saturation, possibility of iron overload should be considered and further evaluated. Follow up as out patient by a scrap drop operator oncologist may be helpful to identify the etiology of this chronic macrocytic anemia and elevated transferrin saturartion Plan is for outpt eval with Hematology. 12. History of seizure. Patient states she takes Keppra for her seizures. Continue Keppra 500 mg by mouth twice a day. 13. Migraine headache. Continue Imitrex 50 mg by mouth as needed at onset of headache. 14. Generalized shaky feeling. Pt states h/o hypoglycemia. Denies dizziness, vertigo,dysequilibrium. No tremor on axam. OOB standing at bedside. FSBS noted to be 76. CK pending. CBC/CMP pending. Orthostatic VS requested. Pt states she is eating and drinking. Consider additional testing pending results. Monitor. 15. Thrush. Nystatin SS D4/10. 16. Staff member Beltran TONG present throughout exam. VS, I&O, 24H, [place]an Vital Signs/I&O Vital Signs Date Time Temp Pulse Resp B/P (MAP) Pulse Ox O2 Delivery O2 Flow Rate FiO2 05/01/17 08:12 16 05/01/17 06:41 98.8 91 107/55 (72) 04/30/17 12:28 Room Air Laboratory Data 24H LABS Laboratory Tests 2 05/01/17 09:53: 05/01/17 10:06: Bedside Glucose (Misc Panel) 76 Sarah Estrada May 01, 2017 10:25
[2017-05-01 10:30] VITALS: BP 103/62
[2017-05-01 10:31] VITALS: BP_SYST 101; BP_SYST 113; BP_DIAS 55; BP_DIAS 56
[2017-05-01 13:27] LABS: MEAN CORPUSCULAR HEMOGLOBIN 34.3 pg (27.0-33.0); MEAN CORPUSCULAR HGB CONC 31.8 g/dl (32.0-36.5); PLATELET COUNT, AUTOMATED 227 10^3/uL (150-450); WHITE BLOOD COUNT 4.1 10^3/uL (4.0-10.0)
[2017-05-01 15:06] LABS: ALBUMIN 2.3 GM/DL (3.2-5.2); ALKALINE PHOSPHATASE 96 U/L (45-117); ALT/SGPT 31 U/L (12-78); ANION GAP 8 MEQ/L (8-16); AST/SGOT 39 U/L (7-37); BILIRUBIN,TOTAL 0.7 MG/DL (0.2-1.0); BLOOD UREA NITROGEN 15 MG/DL (7-18); CALCIUM LEVEL 8.3 MG/DL (8.5-10.1); CARBON DIOXIDE LEVEL 29 MEQ/L (21-32); CHLORIDE LEVEL 107 MEQ/L (98-107); GLOMERULAR FILTRATION RATE > 60.0 (>60); GLUCOSE, FASTING 79 MG/DL (70-105); POTASSIUM SERUM 4.8 MEQ/L (3.5-5.1); SODIUM LEVEL 144 MEQ/L (136-145); TOTAL PROTEIN 5.6 GM/DL (6.4-8.2)
--- NOTE | 2017-05-01 17:33 | MHIPN ---
DATE: 05/01/2017 VITAL SIGNS: Temperature 98.8, pulse 91, respirations 16, blood pressure 107/55. CURRENT MEDICATIONS: - Zyprexa 30 mg at night - Zyprexa 5 mg every 6 hours as needed - Seroquel 200 mg at night - Risperdal 1 mg four times a day - trazodone 200 mg at night - Ativan 1 mg every 6 hours as needed - Paxil 30 mg in the morning - Keppra 500 mg twice a day PSYCHIATRIC HISTORY: The patient's psychotic symptoms persist. She reports auditory hallucinations telling her that she is a burden upon others. She requests increase in the Zyprexa. She has found the Zyprexa somewhat helpful for her anxiety and psychosis. She denies any precipitating stressors. Her appetite is stable. She still has chronic insomnia. The patient has various somatic complaints. Her chart is reviewed. She had an elevated CPK prior to admission. There was no explanation for this. Her CPK remains low currently. The patient currently is on polypharmacy with three different antipsychotics. If she does well with the increased dose of Zyprexa, the Risperdal dose will be weaned off. MENTAL STATUS EXAMINATION: The patient is alert, oriented and cooperative. Mood remains mildly to moderately depressed. She is not currently suicidal. Auditory hallucinations persist. She reports paranoid ideation. Insight and judgment are fair. Grooming and hygiene is poor. No signs of organicity. DIAGNOSES: 1. Schizoaffective disorder, depressed. 2. Asperger's syndrome. 3. Attention deficit hyperactivity disorder (ADHD). PLAN: Increase Zyprexa to 40 mg at night, Zyprexa as needed frequency increased.
[2017-05-01 18:00] VITALS: BP 111/63
[2017-05-01] MEDS: CEPACOL LOZENGE PO PRN (18:52)
[2017-05-01] MEDS: OLANZapine 10 MG TAB PO SCH (21:52)
[2017-05-01] MEDS: QUEtiapine FUMARATE 100 MG TAB PO SCH (21:53)
[2017-05-01] MEDS: traZODone 100 MG TAB PO SCH (21:54)
[2017-05-02] MEDS: PERCOCET 5MG/325MG TAB PO PRN ×3 (05:53→18:28)
[2017-05-02 06:15] VITALS: BP 117/58
[2017-05-02 06:29] VITALS: BP_SYST 105; BP_SYST 140; BP_SYST 99; BP_DIAS 63; BP_DIAS 67; BP_DIAS 78
[2017-05-02] MEDS: NYSTATIN 100,000 UNITS/GM TOPICAL PWD 15 GM TOP SCH ×2 (08:16→21:06)
[2017-05-02] MEDS: levETIRAcetam 250MG TABLET (KEPPRA) PO SCH ×2 (08:17→21:05)
[2017-05-02] MEDS: NYSTATIN 500,000 U/5 ML SUSP UDC PO SCH ×4 (08:17→21:05)
[2017-05-02] MEDS: risperiDONE 1 MG TAB PO SCH ×4 (08:17→21:04)
[2017-05-02] MEDS: OMEPRAZOLE 20 MG CAP PO SCH ×2 (08:17→21:02)
[2017-05-02] MEDS: PARoxetine 10MG TABLET PO SCH (08:17)
[2017-05-02] MEDS: LORATADINE 10 MG TAB PO SCH (08:18)
[2017-05-02] MEDS: ACETAMINOPHEN 500 MG TAB PO SCH ×2 (08:18→21:05)
[2017-05-02] MEDS: MORPHINE 15 MG SA TAB PO SCH ×3 (08:18→21:03)
[2017-05-02] MEDS: SUMAtriptan SUCCINATE 6 MG/0.5 ML VIAL SC PRN ×3 (10:23→22:14)
--- NOTE | 2017-05-02 10:49 | IPNPDOC ---
Date Seen The patient was seen on 05/02/17. Progress Note HPI: 36 yo F admitted to [facility] from 04/15/17-04/17/17 related to elevated CK level, transferred to [facility] for bipolar disorder. Requested to re evaluate the pt this AM related to her reporting abdominal pain. She states she began to have this last evening. She has had no nausea or vomiting. No diarrhea or constipation. No urinary complaints. She is drinking fluids. She has not been eating a lot but did have some breakfast. She was seen yesterday for feeling shaky and states that has improved. Denies any fevers, chills, weakness, fatigue, ESTEVES, CP, SOB, cough, palpitations, abdominal pain, N/V/D or changes in bowel or bladder habits. PMHx: ADHD Asperger syndrome Bipolar disorder Anxiety Depression History of SI Crohn's disease Chronic back pain/chronic pain Asthma GERD Allergic rhinitis History of seizure Migraine headache PSHX: Left knee surgery Ankle surgery Hysterectomy Gastric bypass surgery PE: GEN: 36 yo F, thin and pale appearing. No acute distress. Alert and oriented x 3. HEENT: Normocephalic, atraumatic. Sclera are nonicteric. Conjunctiva without injection. No facial asymmetry. Moist mucous membranes, no exudate noted. Pharynx pink and moist. CHEST: Regular rate and rhythm, +S1, +S2 LUNGS: Clear to auscultation bilaterally. No wheezes, rales, or rhonchi. Breathing appears symmetric and easy. Patient is speaking in full sentences. No accessory muscle use. ABD: Round, soft, mild tenderness with palpation in the lower right quadrant, non-distended. +Bowel sounds throughout. Multiple abdominal healed surgical scars. No rebound or guarding. Right sided costovertebral angle tenderness noted. EXT: No lower extremity edema appreciated. SKIN: No rashes. NEURO: Alert and oriented x 3. Cranial nerves III-XII are intact. No focal deficits appreciated. EK04/15/17 SINUS RHYTHM LOW QRS VOLTAGE IN PRECORDIAL LEADS AND LIMB POSSIBLE RIGHT VENTRICULAR CONDUCTION DELAY MODERATE T-WAVE ABNORMALITY, CONSIDER ANTERIOR ISCHEMIA Left axis deviation A&P: 36 yo F admitted to [facility] from 04/15/17-04/17/17 related to elevated CK level, transferred to [facility] for bipolar disorder, 1. Psych. Plan per Psychiatry. EKG on file. 2. H/O Elevated CK. WNL 04/26/17. CK normal 05/01/17. 3. Borderline EKG. No cardiac signs or symptoms appreciated on exam, follow with PCP. 4. Follow up with PCP on discharge. 5. History of Crohn's disease. Monitor. 6. Chronic back pain/chronic pain. Pain Mgmt consult completed. ISTOP is obtained reference #[id number] indicating MS Contin 30 mg tablets #60 dispensed 04/05/17. Percocet 5/325 #120 tablets dispensed 04/05/[address] Costello. 7. GERD. Continue Prilosec 40 mg by mouth twice a day. 8. Allergic rhinitis. Continue Claritin 10 mg by mouth daily. 9. Asthma. Continue albuterol 2 puffs every 4 hours as needed. 10. H/O Hypernatremia. Sodium noted to be 144 05/01. Recheck CMP. 11. Macrocytic Anemia/pancytopenia. Iron studies, B12, folate completed. Peripheral smear 04/20/17. Chronic macrocytic anemia, with low TIBC and markedly elevated transferrin saturation. No abnormal cells or poikilocytosis is noted. IN view of high transferrin saturation, possibility of iron overload should be considered and further evaluated. Follow up as out patient by a snow blower oncologist may be helpful to identify the etiology of this chronic macrocytic anemia and elevated transferrin saturartion Plan is for outpt eval with Hematology. 12. History of seizure. Patient states she takes Keppra for her seizures. Continue Keppra 500 mg by mouth twice a day. 13. Migraine headache. Continue Imitrex 50 mg by mouth as needed at onset of headache. 14. Generalized shaky feeling. Pt states h/o hypoglycemia. Symptoms are improved today. Denies dizziness, vertigo,dysequilibrium. No tremor on exam. OOB ambulating in the hallways. FSBS noted to be 76. CK within normal limits. CBC/CMP to be updated today. Monitor Orthostatic VS. Encourage oral intake. Monitor. 15. Thrush. Nystatin SS D5/10. 16. Abdominal pain. Patient is afebrile. No leukocytosis as per labs 05/01/17. Patient denies any diarrhea or constipation. Request CBC/CMP. Request UA/urine culture. Check CT scan abdomen and pelvis. Tylenol if needed. Monitor. 17. Staff member Tabatha FOX present throughout exam. VS, I&O, 24H, Fishbone Vital Signs/I&O Vital Signs Date Time Temp Pulse Resp B/P (MAP) Pulse Ox O2 Delivery O2 Flow Rate FiO2 05/02/17 10:26 16 05/02/17 08:18 Room Air 05/02/17 06:29 97 99/67 (78) 100 105/78 (87) 140/63 (88) 05/02/17 06:15 97.2 Laboratory Data 24H LABS Laboratory Tests 2 05/01/17 13:00: Nucleated Red Blood Cells % (auto) 0.0, Anion Gap 8, Glomerular Filtration Rate > 60.0, Blood Urea Nitrogen 15, Creatinine 0.80, Sodium Level 144, Potassium Level 4.8, Chloride Level 107, Carbon Dioxide Level 29, Calcium Level 8.3L, Aspartate Amino Transf (AST/SGOT) 39H, Alanine Aminotransferase (ALT/SGPT) 31, Alkaline Phosphatase 96, Total Bilirubin 0.7, Total Protein 5.6L, Albumin 2.3L, Albumin/Globulin Ratio 0.70L CBC/BMP Laboratory Tests 05/01/17 13:00 Red Blood Count 3.38 L, Mean Corpuscular Volume 108.0 H, Mean Corpuscular Hemoglobin 34.3 H, Mean Corpuscular Hemoglobin Concent 31.8 L, Red Cell Distribution Width 14.0, Calcium Level 8.3 L, Aspartate Amino Transf (AST/SGOT) 39 H, Alanine Aminotransferase (ALT/SGPT) 31, Alkaline Phosphatase 96, Total Bilirubin 0.7, Total Protein 5.6 L, Albumin 2.3 L Sarah Estrada May 02, 2017 10:49
[2017-05-02 12:00] VITALS: BP_SYST 103; BP_SYST 106; BP_SYST 112; BP_DIAS 55; BP_DIAS 56; BP_DIAS 69
[2017-05-02 12:57] LABS: MEAN CORPUSCULAR HEMOGLOBIN 34.8 pg (27.0-33.0); MEAN CORPUSCULAR HGB CONC 32.7 g/dl (32.0-36.5); MEAN CORPUSCULAR VOLUME 106.3 fl (80.0-96.0); PLATELET COUNT, AUTOMATED 160 10^3/uL (150-450); RED CELL DISTRIBUTION WIDTH 13.9 % (11.5-14.5); WHITE BLOOD COUNT 3.8 10^3/uL (4.0-10.0)
[2017-05-02 14:05] LABS: ALBUMIN 2.1 GM/DL (3.2-5.2); ALBUMIN/GLOBULIN RATIO 0.62 (1.00-1.93); ALKALINE PHOSPHATASE 95 U/L (45-117); ALT/SGPT 31 U/L (12-78); ANION GAP 10 MEQ/L (8-16); AST/SGOT 46 U/L (7-37); BILIRUBIN,TOTAL 0.7 MG/DL (0.2-1.0); BLOOD UREA NITROGEN 16 MG/DL (7-18); CALCIUM LEVEL 7.8 MG/DL (8.5-10.1); CARBON DIOXIDE LEVEL 25 MEQ/L (21-32); CHLORIDE LEVEL 107 MEQ/L (98-107); CREATININE FOR GFR 0.83 MG/DL (0.55-1.02); GLOMERULAR FILTRATION RATE > 60.0 (>60); GLUCOSE, FASTING 131 MG/DL (70-105); POTASSIUM SERUM 4.7 MEQ/L (3.5-5.1); SODIUM LEVEL 142 MEQ/L (136-145); TOTAL PROTEIN 5.5 GM/DL (6.4-8.2)
[2017-05-02] MEDS: SUMAtriptan SUCCINATE 25 MG TAB PO PRN (14:30)
[2017-05-02 18:00] VITALS: BP_SYST 102; BP_SYST 111; BP_SYST 116; BP_DIAS 56; BP_DIAS 67; BP_DIAS 73
[2017-05-02] MEDS: OLANZapine 10 MG TAB PO SCH (21:04)
[2017-05-02] MEDS: QUEtiapine FUMARATE 100 MG TAB PO SCH (21:44)
[2017-05-02] MEDS: traZODone 100 MG TAB PO SCH (21:46)
[2017-05-03] MEDS: PERCOCET 5MG/325MG TAB PO PRN ×2 (06:20→12:13)
[2017-05-03 06:52] VITALS: BP_SYST 117; BP_SYST 127; BP_SYST 139; BP_DIAS 59; BP_DIAS 73; BP_DIAS 87
--- NOTE | 2017-05-03 08:06 | MHIPN ---
DATE: 05/02/2017 VITAL SIGNS: Temperature 97.2, pulse 98, respirations 14, blood pressure 117/58. CURRENT MEDICATIONS: - Zyprexa 40 mg at night - Seroquel 200 mg at night - Risperdal 1 mg four times a day - trazodone 200 mg at night - Paxil 30 mg in the morning - Keppra 500 mg twice a day PSYCHIATRIC HISTORY: The patient still reports significant auditory hallucinations, especially at night. The Zyprexa dose was increased last night with minimal benefit. She is tolerating the medications well, however. Her CPK has been in the normal range. It is still unclear what caused the elevated CPK prior to admission. She denies any falls, bruises, etc. The patient still reports insomnia as well. The patient does have a long-standing history of insomnia, has not responded very well to various psychotropics. Anxiety is better. Her depression is better. Tentative plans are for discharge on . She is looking forward to it. She wants to return home to her family. Her brother will be able to pick her up. The patient has no other complaints. MENTAL STATUS EXAMINATION: The patient is alert, oriented and cooperative. Mood is mildly depressed. She appears less anxious. She is not suicidal. She does have chronic auditory hallucinations. Mild paranoia. Insight and judgment appear reasonably good. Grooming and hygiene appear improved. No signs of organicity. DIAGNOSES: 1. Schizoaffective disorder, depressed. 2. Asperger's syndrome. 3. Attention deficit hyperactivity disorder (ADHD). PLAN: Continue current psychotropics. The patient states that she does not have an outpatient mental health provider. This will be arranged. If the patient does not show significant benefit on the Risperdal, it will be discontinued prior to discharge. The patient may be a candidate for Clozaril on an outpatient basis if her symptoms persist. The advantage of Clozaril is that blood levels may be obtained to establish adequate blood levels, etc.
[2017-05-03] MEDS: levETIRAcetam 250MG TABLET (KEPPRA) PO SCH ×2 (08:45→21:12)
[2017-05-03] MEDS: OMEPRAZOLE 20 MG CAP PO SCH ×2 (08:45→21:11)
[2017-05-03] MEDS: LORATADINE 10 MG TAB PO SCH (08:45)
[2017-05-03] MEDS: risperiDONE 1 MG TAB PO SCH ×4 (08:45→21:12)
[2017-05-03] MEDS: NYSTATIN 500,000 U/5 ML SUSP UDC PO SCH ×4 (08:45→21:11)
[2017-05-03] MEDS: PARoxetine 10MG TABLET PO SCH (08:45)
[2017-05-03] MEDS: ACETAMINOPHEN 500 MG TAB PO SCH ×2 (08:46→21:12)
[2017-05-03] MEDS: MORPHINE 15 MG SA TAB PO SCH ×3 (08:46→21:13)
[2017-05-03] MEDS: NYSTATIN 100,000 UNITS/GM TOPICAL PWD 15 GM TOP SCH ×2 (08:46→21:13)
[2017-05-03] MEDS ORDERED: PALIPERIDONE PALMITATE 156 MG/1ML INJ(INVEGA SUSTENNA)(J2426) IM ONE (13:15)
--- NOTE | 2017-05-03 15:35 | REP ---
CT ABDOMEN AND PELVIS WITHOUT CONTRAST: CT abdomen and pelvis performed without oral or IV contrast. Sagittal and coronal reconstruction images are performed. Visualized lung bases demonstrate no infiltrate. There is a small amount of pericardial fluid or thickening. The liver, spleen, adrenals, pancreas and kidneys are grossly unremarkable. There is no hydronephrosis. There is no abdominal aortic aneurysm. There is no evidence of adenopathy. I see no free air or free fluid. Multiple metallic clips are seen in the gallbladder fossa. There are metallic clips in the region of the stomach which appear to be status post gastric bypass surgery. There is a small umbilical hernia containing fat. There is moderate fecal retention. There is no evidence of small bowel obstruction. The patient has had a hysterectomy. Urinary bladder is not well distended and not optimally evaluated. IMPRESSION: Metallic clips in the upper abdomen. Small umbilical hernia contains fat. No definite acute abnormality. There is moderate fecal retention. No free air or free fluid. A small amount of pericardial fluid or thickening. Signed by Mahendra Booker MD 05/04/2017 08:24 P
[2017-05-03 15:46] VITALS: BP_SYST 100; BP_SYST 101; BP_SYST 108; BP_DIAS 59; BP_DIAS 78; BP_DIAS 82
[2017-05-03 18:00] VITALS: BP 122/77
[2017-05-03] MEDS: traZODone 100 MG TAB PO SCH (21:11)
[2017-05-03] MEDS: QUEtiapine FUMARATE 100 MG TAB PO SCH (21:13)
[2017-05-03] MEDS: OLANZapine 10 MG TAB PO SCH (21:13)
[2017-05-03] MEDS: SUMAtriptan SUCCINATE 6 MG/0.5 ML VIAL SC PRN (23:24)
[2017-05-04] MEDS: PERCOCET 5MG/325MG TAB PO PRN (04:42)
[2017-05-04] MEDS: SUMAtriptan SUCCINATE 6 MG/0.5 ML VIAL SC PRN (05:20)
[2017-05-04 06:52] VITALS: BP_SYST 104; BP_SYST 108; BP_SYST 111; BP_DIAS 64; BP_DIAS 65; BP_DIAS 75
[2017-05-04] MEDS ORDERED: OLAN20TA PO (08:06)
[2017-05-04] MEDS ORDERED: TRAZ300T2 PO (08:06)
[2017-05-04] MEDS ORDERED: PARO30TA PO (08:06)
[2017-05-04] MEDS: NYSTATIN 100,000 UNITS/GM TOPICAL PWD 15 GM TOP SCH (08:20)
[2017-05-04] MEDS: NYSTATIN 500,000 U/5 ML SUSP UDC PO SCH (08:20)
[2017-05-04] MEDS: OMEPRAZOLE 20 MG CAP PO SCH (08:21)
[2017-05-04] MEDS: PARoxetine 10MG TABLET PO SCH (08:21)
[2017-05-04] MEDS: LORATADINE 10 MG TAB PO SCH (08:21)
[2017-05-04] MEDS: levETIRAcetam 250MG TABLET (KEPPRA) PO SCH (08:21)
[2017-05-04] MEDS: ACETAMINOPHEN 500 MG TAB PO SCH (08:21)
[2017-05-04] MEDS: risperiDONE 1 MG TAB PO SCH (08:21)
[2017-05-04] MEDS: MORPHINE 15 MG SA TAB PO SCH (08:21)
[2017-05-04] MEDS: CEPACOL LOZENGE PO PRN (09:48)
[2017-05-04] MEDS: SUMAtriptan SUCCINATE 25 MG TAB PO PRN (09:48)
--- NOTE | 2017-05-04 17:10 | MHIPN ---
DATE: 05/03/2017 VITAL SIGNS: Pulse 101, respirations 16, blood pressure 117/73. CURRENT MEDICATIONS: - Zyprexa 40 mg nightly - Seroquel 200 mg nightly - Risperdal 1 mg four times a day - trazodone 200 mg nightly - Paxil 30 mg every morning - Keppra 500 mg twice a day PSYCHIATRIC HISTORY: Patient has been more active on the unit, she is out of bed more, she is socializing more with her peers. Grooming and hygiene has improved, she is no longer wearing pajamas, for example, throughout the day. The patient has been attending some groups. The patient is looking forward to discharge tomorrow. She feels optimistic about the future. She is looking forward to the [place] holidays and buying presents for her children, her brother is helping her with finances. He will be picking her up tomorrow and monitoring her condition. Her appetite remains low, which is normal for her. Sleep patterns, however, were much improved last night, she fell asleep about 9 p.m., she was up once about 1 a.m., and then slept the rest of the night. The patient states that her psychotic symptoms are quieter. The voices had been quite critical, telling her to harm herself, now the content of the voices are much more benign. Patient is interested in the Risperdal injection, this would be the Invega Sustenna. Side effect profile reviewed. She has tolerated it well without any aggravation in CPK, etcetera. She feels that the antipsychotic medications have been helpful. Due to her malabsorption syndrome, she agrees that the long-acting injectable medications are in her best interest. She is willing to get an Invega Sustenna injection today and to followup with the outpatient mental health center. Patient advised that she is on polypharmacy with multiple antipsychotics. This will be tapered on an outpatient basis. MENTAL STATUS EXAMINATION: Mood and affect markedly improved. Affect appears quite bright today. Grooming and hygiene is much improved. She still reports some mild depression. Anxiety is much improved as well. Auditory hallucinations persist, but are not as prominent. Paranoia is improved. No signs of dangerousness. DIAGNOSES: Schizoaffective disorder, depressed. Asperger's syndrome. Attention deficit hyperactivity disorder (ADHD). Gastrointestinal (GI) malabsorption syndrome likely from Crohn's disease. PLAN: Invega Sustenna 156 mg intramuscular (IM) today.
--- NOTE | 2017-05-06 21:15 | MHDS ---
DATE OF ADMISSION: 04/17/2017 DATE OF DISCHARGE: 05/04/2017 VITAL SIGNS: Temperature not taken. Pulse 97, respirations 18, blood pressure 104/64. LABORATORIES: WBC low at 3.8, RBC low at 3.16, hemoglobin low at 11.0, MCV elevated at 106.3. Chem survey within normal limits. Urinalysis is 1+ for urine bilirubin and urine RBC elevated at 16, urine WBC elevated at 6. CAT scan of the abdomen and pelvis was negative. DISCHARGE DIAGNOSES: 1. Schizoaffective disorder, depressed. 2. Asperger's syndrome. 3. Attention deficit hyperactivity disorder (ADHD). DISCHARGE MEDICATIONS: - Invega Sustena 156 mg intramuscularly - Zyprexa 40 mg at night - Paxil 30 mg in the morning CHIEF COMPLAINT: Patient feeling depressed. HISTORY OF PRESENT ILLNESS: The patient was admitted by Dr. Zarate, who reports that this is a 36-year-old white female with a history of bipolar disorder/schizoaffective disorder. She was admitted to medicine for elevated creatinine. She was transferred from the medical floor once stabilized medically. The patient reported feeling depressed with low energy, poor sleep, poor appetite and suicidal thoughts. The patient has been on multiple psychotropics over the year with marginal benefit. PROGRESS ON THE UNIT: The patient was started on Paxil, Seroquel and Lamictal by Dr. Zarate. The patient was isolated on the unit. She had little interaction with her peers and poor attendance to groups. The patient was then seen by myself for the first time on 04/24/2017. The patient reports that she had been on a high dose of Seroquel 800 mg per day with little effect. She does have a history of Crohn's disease and multiple gastrointestinal surgeries with likely malabsorption syndrome. The patient likely needs high doses of medications to achieve adequate blood levels. The patient's Seroquel was increased with marginal benefit. Trazodone was increased with marginal benefit. The patient had reported significant psychotic symptoms. The patient reports hearing voices constantly throughout the day but worse at night. She also reported some paranoid ideation as well. The patient was started on Zyprexa at bedtime. The dose was gradually increased, it was well tolerated. The patient still had psychotic symptoms, however. She was stabilized at Zyprexa 40 mg at night. She still reported insomnia and auditory hallucinations. The patient was then started on Risperdal 1 mg four times a day. The patient tolerated this well. Also, she was on it for about 1 week. No signs of any adverse effects. Due to her malabsorption syndrome, the use of Invega Sustena long acting injection was reviewed with the patient. The patient feels very comfortable with injectable agents. The patient was given Invega Sustena the day before discharge and tolerated it well. The patient hopes to continue the Invega Sustena upon discharge. The patient's Seroquel was discontinued. Her oral Risperdal was also discontinued. The patient's mood did improve dramatically. She was more social on the unit and interacting with peers. She started attending groups, arts and crafts. The patient's brother was a major support and came in and visited and confirmed the patient's improved mental state. MENTAL STATUS EXAMINATION: At the time of discharge, mood and affect were much improved, affect was bright. The patient smiled easily. Anxiety was prominent. No longer had suicidal thoughts. Depressive symptoms were low. The patient reports that she still had auditory hallucinations but they were less prominent and easier to cope with. Paranoia had resolved. Grooming and hygiene was much improved. Memory functions were intact. No signs of dangerousness or impulsivity. The patient has reached maximal hospital benefit. She is looking forward to returning home for [place] with her family. PLAN: Discharge today to the community with the assistance of her brother, who will monitor condition. The patient will be due for another Invega Sustena injection in 1 month, approximately 06/04/2017. The patient's Zyprexa likely can be weaned off gradually by the outpatient providers.
== END 2017-05-04 11:00 | disposition home or self-care (01) | DRG 885 ==
LOC: M PSY 19:54
PROVIDERS: ADMIT Psychiatry & Neurology Psychiatry; ATTEND Psychiatry & Neurology Psychiatry
DX: F25.9 Schizoaffective disorder, unspecified (principal); R45.851 Suicidal ideations; F31.4 Bipolar disorder, current episode depressed, severe, without psychotic features; K50.90 Crohn's disease, unspecified, without complications; B37.0 Candidal stomatitis; M54.5 Low back pain; F84.5 Asperger's syndrome; R74.8 Abnormal levels of other serum enzymes; D53.9 Nutritional anemia, unspecified; R74.0 Nonspecific elevation of levels of transaminase and lactic acid dehydrogenase [LDH]; R94.31 Abnormal electrocardiogram [ECG] [EKG]; F90.9 Attention-deficit hyperactivity disorder, unspecified type; G43.909 Migraine, unspecified, not intractable, without status migrainosus; K21.9 Gastro-esophageal reflux disease without esophagitis; J30.9 Allergic rhinitis, unspecified; Z88.5 Allergy status to narcotic agent; Z88.8 Allergy status to other drugs, medicaments and biological substances; Z98.84 Bariatric surgery status; Z79.899 Other long term (current) drug therapy; Z79.891 Long term (current) use of opiate analgesic; Z90.710 Acquired absence of both cervix and uterus

== ENCOUNTER → 2017-05-30 | Outpatient (REF) | payer MEDICARE, MEDICAID ==
[2017-05-30 14:14] LABS: VITAMIN B12 LEVEL 370 PG/ML (247-911)
[2017-05-30 14:25] LABS: FERRITIN 67 NG/ML (8-252); IRON (FE) 46 UG/DL (50-170); PERCENT SATURATION 26.1 % (13.2-45.0); TOTAL IRON BINDING CAPACITY 176 UG/DL (250-450)
[2017-05-30 14:27] LABS: HEMATOCRIT 34.1 % (36.0-47.0)
[2017-05-30 14:27] LABS: REASON FOR REVIEW COMPREHENSIVE REVIEW; SLIDE REVIEW Report; SOURCE PERIPHERAL SMEAR
[2017-06-02 12:05] LABS: PRETREATED FOLATE FOR RBCFOL 12.7 NG/ML; RBC FOLATE 782.1 NG/ML (280-791)
[2017-06-03 14:11] LABS: CERULOPLASMIN 16.8 mg/dL (19.0-39.0); HOMOCYST(E)INE SERUM 4.4 umol/L (0.0-15.0)
[2017-06-03 14:11] LABS: METHYLMALONIC ACID 259 nmol/L (0-378)
== END ==
LOC: M LAB REF 13:22
DX: D64.9 Anemia, unspecified (principal)
CPT/HCPCS: 83550

== ENCOUNTER 2020-03-31 17:20 | Inpatient (IN) | payer MEDICARE, MEDICAID ==
[~2020-03-31] VITALS: Ht 167.6 cm; Wt 119.8 kg
[~2020-03-31 17:20] MED LIST changes: -LORA10TA2 PO; +LORA10TA3 PO; +OLAN20TA14 PO; -OMEP40CA2 PO; +OMEP40CA97 PO; +ONDA8TAB10 PO; -ONDA8TAB7 PO; +PARO30TA65 PO; -QUET30XR PO; +SERO300T PO; +TRAZ300T2 PO
[2020-03-31 18:39] LABS: HEMATOCRIT 39.6 % (36.0-47.0); MEAN CORPUSCULAR HEMOGLOBIN 28.4 pg (27.0-33.0); MEAN CORPUSCULAR HGB CONC 30.3 g/dl (32.0-36.5); MEAN CORPUSCULAR VOLUME 93.8 fl (80.0-96.0); PLATELET COUNT, AUTOMATED 317 10^3/uL (150-450); RED BLOOD COUNT 4.22 10^6/uL (4.00-5.40); WHITE BLOOD COUNT 8.1 10^3/uL (4.0-10.0)
[2020-03-31 18:59] LABS: AMPHETAMINES LEVEL URINE NEGATIVE (NEGATIVE); BARBITURATES URINE NEGATIVE (NEGATIVE); BENZODIAZEPINES URINE NEGATIVE (NEGATIVE); CANNABINOIDS URINE POSITIVE (NEGATIVE); COCAINE METABOLITE URINE NEGATIVE (NEGATIVE); METHADONE URINE NEGATIVE (NEGATIVE); OPIATES URINE NEGATIVE (NEGATIVE); PHENCYCLIDINE URINE NEGATIVE (NEGATIVE)
[2020-03-31 19:07] LABS: ACETAMINOPHEN LEVEL < 2.0 UG/ML (10.0-30.0); ALBUMIN 3.6 GM/DL (3.2-5.2); ALT/SGPT 14 U/L (12-78); BILIRUBIN,DIRECT 0.1 MG/DL (0.0-0.2); BILIRUBIN,TOTAL 0.3 MG/DL (0.2-1.0); BLOOD UREA NITROGEN 10 MG/DL (7-18); CALCIUM LEVEL 8.7 MG/DL (8.5-10.1); CARBON DIOXIDE LEVEL 26 MEQ/L (21-32); CHLORIDE LEVEL 108 MEQ/L (98-107); ETHYL ALCOHOL (ETHANOL) < 0.003 % (0.000-0.010); GLOMERULAR FILTRATION RATE > 60.0 (>58); GLUCOSE, FASTING 77 MG/DL (70-100); POTASSIUM SERUM 4.4 MEQ/L (3.5-5.1); SALICYLATE LEVEL 2.8 MG/DL (5.0-30.0); SODIUM LEVEL 140 MEQ/L (136-145); TOTAL PROTEIN 6.7 GM/DL (6.4-8.2)
[2020-03-31] MEDS ORDERED: VITA50005 PO (20:03)
[2020-03-31] MEDS ORDERED: GABA-843 PO (20:03)
[2020-03-31] MEDS ORDERED: ACET1TAB16 PO (20:03)
[2020-03-31] MEDS ORDERED: QUET400T PO (20:03)
[2020-03-31] MEDS ORDERED: TRAZ1TAB12 PO (20:03)
[2020-03-31] MEDS ORDERED: MONT10TA4 PO (20:03)
[2020-03-31] MEDS ORDERED: hydrOXYzine 25 MG TAB PO STA (21:00)
[2020-03-31] MEDS ORDERED: ACETAMINOPHEN TAB 650MG DOSE (2X325MG) PO PRN (22:00)
[2020-03-31] MEDS ORDERED: MOM 30ML SUSPENSION UDC PO PRN (22:00)
[2020-04-01 00:44] VITALS: BP 133/83
[2020-04-01] MEDS: MIRTAZAPINE 15 MG TAB PO SCH ×2 (01:01→20:43)
[2020-04-01] MEDS: traZODone 50 MG TAB PO PRN ×2 (01:01→20:43)
[2020-04-01] MEDS: QUEtiapine FUMARATE 200 MG TAB PO PRN ×2 (01:01→20:43)
[2020-04-01 06:47] VITALS: BP 108/57
[2020-04-01] MEDS ORDERED: INFLUENZA QUADRIVALENT PF VACCINE 0.5ML SYRINGE IM ONE (09:00)
[2020-04-01] MEDS: hydrOXYzine 25 MG TAB PO PRN ×2 (10:01→17:04)
[2020-04-01] MEDS: busPIRone 5 MG TAB PO SCH ×2 (10:02→20:43)
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
[2020-04-01] MEDS: OLANZapine ORAL DISINTEGRATING TAB 5MG PO PRN (17:20)
[2020-04-01 18:00] VITALS: BP 122/74
--- NOTE | 2020-04-01 18:18 | HPEPDOC ---
General Date of Admission Mar 31, 2020 at 21:56 Date of Service: Apr 01, 2020 Chief Complaint The patient is a 39-year-old female admitted with a reason for visit of Schizoaffective Do. History of Present Illness 39 year old female with PMH of chronic back pain, ADHD, Asperger syn, Seizure dis, migraines, Asthma, Schizoaffective disorder, depression, anxiety, Morbid obesity s/p gastric bypass surgery admitted to [facility] for schizoaffective disorder. I am seeing the patient for medical history and physical. Today she complains of low back pain dull aching in nature about 5/10 in intensity con stantly present. She reports that she follows with pain management in [place] and gets injections every 6 weeks. She also complained of dull aching pain in her right leg where she had a fracture in July 2019 after a fall down 16 stairs and has plates and screws inside. Home Medications Scheduled Ergocalciferol (Vitamin D2) (Vitamin D2) 50,000 Units Cap, 50,000 UNITS PO QWEEK, (Reported) MONDAY Gabapentin (Gabapentin) 300 Mg Capsule, 300 MG PO QHS, (Reported) Montelukast Sodium (Montelukast Sodium) 10 Mg Tablet, 10 MG PO QHS, (Reported) Quetiapine Fumarate (Quetiapine Fumarate) 400 Mg Tablet, 200 MG PO QHS, (Reported) Trazodone HCl (Trazodone HCl) 100 Mg Tablet, 200 MG PO QHS, (Reported) Scheduled PRN Acetaminophen with Codeine (Acetaminophen-Cod #3 Tablet) 1 Each Tablet, 1 TAB PO Q8H PRN for PAIN, (Reported) Allergies Coded Allergies: NSAIDS (Non-Steroidal Anti-Inflamma (Verified Allergy, Intermediate, hives, headache, 03/31/20) ketorolac (Verified Allergy, Intermediate, hives, headache, 03/31/20) tramadol (Verified Allergy, Intermediate, HIVES/HEADACHE, 03/31/20) adalimumab (Verified Adverse Reaction, Intermediate, platelets drop, 03/31/20) infliximab (Verified Adverse Reaction, Intermediate, blood counts drop, 03/31/20) Past Medical History Medical History ADHD Asperger syndrome Schizoaffective disorder Bipolar disorder Depression/ anxiety Crohn's disease Chronic back pain/chronic pain Asthma GERD Allergic rhinitis History of seizure Migraine headache H/o Morbid obesity s/p gastric bypass Obesity Fracture right leg, right ankle and multiple ribs on the right in July 2019 after a fall down stairs. Surgical History Left knee surgery Ankle surgery Hysterectomy Gastric bypass surgery Right Leg Fracture repair with plate and screws Family History Mother: CAD, thyroid disorder, NAFLD Father: kidney stones Social History * Smoker: Denies Alcohol: Denies Drugs: denies A-FIB/CHADSVASC A-FIB History Current/History of A-Fib/PAF?: No Review of Systems Constitutional: Denies: Chills, Fever, Night Sweats Eyes: Denies: Pain, Vision change ENT: Denies: Head Aches, Ear Pain, Dysphagia Skin: Denies: Rash, Lesions, Breakdown Pulmonary: Denies: Dyspnea, Cough Cardiovascular: Denies: Chest Pain, Palpitations, Orthopnea, Paroxysmal Noc. Dyspnea, Lt Headedness Gastrointestinal: Denies: Nausea, Vomiting, Abdominal Pain, Diarrhea Genitourinary: Denies: Dysuria, Frequency, Incontinence, Retention Hematologic: Denies: Bruising, Bleeding Excessively Musculoskeletal: Reports: Back Pain, Leg Pain, Muscle Pain; Denies: Neck Pain, Joint Pain, Spasms Neurological: Denies: Weakness, Numbness, Change in speech, Confusion Psych: Reports: Mood Normal; Denies: Depression, Memory Issues Physical Examination General Exam: Positive: Alert, No Acute Distress Eye Exam: Positive: PERRLA, Conjunctiva & lids normal, EOMI; Negative: Sclera icteric ENT Exam: Positive: Atraumatic, Mucous membr. moist/pink, Pharynx Normal Neck Exam: Positive: Supple; Negative: JVD, thyromegaly Chest Exam: Positive: Clear to auscultation, Normal air movement Heart Exam: Positive: Rate Normal, Regular Rhythm, Normal S1, Normal S2; Negative: Murmurs, Rubs Telemetry: Positive: No significant arrhythmia Abdomen Exam: Positive: Normal bowel sounds, Soft; Negative: Tenderness, Hepatospenomegaly Extremity Exam: Positive: Normal pulses; Negative: Clubbing, Cyanosis, Edema Skin Exam: Positive: Nl turgor and temperature; Negative: Breakdown, Lesion Neuro Exam: Positive: Normal Gait, Normal Speech, Cranial Nerves 3-12 NL, Reflexes 2+ Psych Exam: Positive: Mental status NL, Mood NL, Oriented x 3 Vital Signs Vital Signs Date Time Temp Pulse Resp B/P (MAP) Pulse Ox O2 Delivery O2 Flow Rate FiO2 04/01/20 06:47 96.5 66 16 108/57 (74) 96 Room Air Laboratory Data Labs 24H Laboratory Tests 2 03/31/20 18:08: Nucleated Red Blood Cells % (auto) 0.0, Anion Gap 6L, Glomerular Filtration Rate > 60.0, Calcium Level 8.7, Total Bilirubin 0.3, Direct Bilirubin 0.1, Aspartate Amino Transf (AST/SGOT) 14, Alanine Aminotransferase (ALT/SGPT) 14, Alkaline Phosphatase 107, Total Protein 6.7, Albumin 3.6, Albumin/Globulin Ratio 1.2, Thyroid Stimulating Hormone (TSH) 2.490, Salicylates Level 2.8L, Urine Opiates Screen NEGATIVE, Urine Methadone Screen NEGATIVE, Acetaminophen Level < 2.0L, Urine Barbiturates Screen NEGATIVE, Urine Phencyclidine Screen NEGATIVE, Urine Amphetamines Screen NEGATIVE, Urine Benzodiazepines Screen NEGATIVE, Urine Cocaine Metabolite Screen NEGATIVE, Urine Cannabinoids Screen POSITIVEH, Ethyl Alcohol Level < 0.003 03/31/20 20:13: Coronavirus (COVID-19)(PCR) NEGATIVE CBC/BMP Laboratory Tests 03/31/20 18:08 Assessment/Plan 39 year old female with PMH of chronic back pain, ADHD, Asperger syn, Seizure dis, migraines, Asthma, Schizoaffective disorder, depression, anxiety, Morbid obesity s/p gastric bypass surgery admitted to [facility] for schizoaffective disorder. I am seeing the patient for medical history and physical. Chronic Back pain will start on gabapentin Asthma Singulair, albuterol prn. GERD Mylanta prn. Schizoaffective disorder/ depression/anxiety as per psychiatry. Plan / VTE VTE Prophylaxis Ordered?: No (freely ambulatory) DEISY WILLAMS MD Apr 01, 2020 13:49
[2020-04-01] MEDS: MONTELUKAST 10 MG TAB PO SCH (20:43)
[2020-04-01] MEDS: GABAPENTIN 300 MG CAP PO SCH (20:43)
[2020-04-02 06:45] VITALS: BP 104/55
[2020-04-02] MEDS: hydrOXYzine 25 MG TAB PO PRN (08:32)
[2020-04-02] MEDS: busPIRone 5 MG TAB PO SCH ×2 (08:32→20:22)
[2020-04-02] MEDS: hydrOXYzine 50 MG TAB PO PRN ×2 (13:55→19:49)
[2020-04-02] MEDS: OLANZapine ORAL DISINTEGRATING TAB 5MG PO PRN ×2 (13:55→20:22)
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
[2020-04-02 16:35] VITALS: BP 136/73
[2020-04-02] MEDS: MAALOX 30 ML SUSP *UDC PO PRN (18:33)
[2020-04-02] MEDS: ALBUTEROL 90 MCG/ACT 8GM HFA INHALER INH PRN (18:33)
[2020-04-02] MEDS: QUEtiapine FUMARATE 200 MG TAB PO PRN (20:22)
[2020-04-02] MEDS: traZODone 50 MG TAB PO PRN (20:22)
[2020-04-02] MEDS: GABAPENTIN 300 MG CAP PO SCH (20:22)
[2020-04-02] MEDS: MIRTAZAPINE 15 MG TAB PO SCH (20:22)
[2020-04-02] MEDS: MONTELUKAST 10 MG TAB PO SCH (20:22)
[2020-04-03] MEDS: ALBUTEROL 90 MCG/ACT 8GM HFA INHALER INH PRN ×3 (00:39→22:05)
[2020-04-03] MEDS: hydrOXYzine 50 MG TAB PO PRN ×2 (03:59→16:59)
[2020-04-03 06:41] VITALS: BP 118/80
[2020-04-03] MEDS: lamoTRIgine 25 MG TAB PO SCH (08:20)
[2020-04-03] MEDS: busPIRone 5 MG TAB PO SCH ×2 (08:21→20:25)
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
[2020-04-03] MEDS: haloperidoL 5 MG TAB PO SCH ×2 (10:26→20:24)
[2020-04-03] MEDS: MAALOX 30 ML SUSP *UDC PO PRN (15:40)
[2020-04-03] MEDS: MONTELUKAST 10 MG TAB PO SCH (20:25)
[2020-04-03] MEDS: MIRTAZAPINE 15 MG TAB PO SCH (20:25)
[2020-04-03] MEDS: GABAPENTIN 300 MG CAP PO SCH (20:25)
[2020-04-03] MEDS ORDERED: ACETAMINOPHEN TAB 650MG DOSE (2X325MG) PO PRN (21:15)
[2020-04-03] MEDS: traZODone 50 MG TAB PO PRN (22:05)
[2020-04-03] MEDS: QUEtiapine FUMARATE 200 MG TAB PO PRN (22:05)
[2020-04-04 06:32] VITALS: BP 122/72
[2020-04-04] MEDS: hydrOXYzine 50 MG TAB PO PRN ×2 (08:36→20:37)
[2020-04-04] MEDS: haloperidoL 5 MG TAB PO SCH ×2 (08:37→20:37)
[2020-04-04] MEDS: busPIRone 5 MG TAB PO SCH ×2 (08:37→20:37)
[2020-04-04] MEDS: lamoTRIgine 25 MG TAB PO SCH (08:37)
[2020-04-04] MEDS ORDERED: ACETAMINOPHEN 500 MG TAB PO PRN (10:30)
[2020-04-04] MEDS: ACETAMINOPH W/CODEINE #3 TAB UD PO PRN ×2 (10:59→23:49)
[2020-04-04 16:00] VITALS: BP 146/83
[2020-04-04] MEDS: haloperidoL 5 MG TAB PO PRN (16:18)
[2020-04-04] MEDS: ALBUTEROL 90 MCG/ACT 8GM HFA INHALER INH PRN (18:33)
[2020-04-04] MEDS: MAALOX 30 ML SUSP *UDC PO PRN (18:34)
[2020-04-04] MEDS: MIRTAZAPINE 15 MG TAB PO SCH (20:37)
[2020-04-04] MEDS: traZODone 50 MG TAB PO PRN (20:37)
[2020-04-04] MEDS: GABAPENTIN 300 MG CAP PO SCH (20:37)
[2020-04-04] MEDS: MONTELUKAST 10 MG TAB PO SCH (20:37)
[2020-04-04] MEDS: QUEtiapine FUMARATE 200 MG TAB PO PRN (20:37)
[2020-04-05] MEDS: hydrOXYzine 50 MG TAB PO PRN ×2 (04:32→21:05)
[2020-04-05 07:05] VITALS: BP 141/79
[2020-04-05] MEDS: busPIRone 5 MG TAB PO SCH ×2 (09:12→21:04)
[2020-04-05] MEDS: haloperidoL 5 MG TAB PO SCH ×2 (09:12→21:04)
[2020-04-05] MEDS: lamoTRIgine 25 MG TAB PO SCH (09:12)
[2020-04-05] MEDS: haloperidoL 5 MG TAB PO PRN (12:22)
[2020-04-05] MEDS: ACETAMINOPH W/CODEINE #3 TAB UD PO PRN (12:22)
[2020-04-05] MEDS: ALBUTEROL 90 MCG/ACT 8GM HFA INHALER INH PRN (18:24)
[2020-04-05] MEDS: MIRTAZAPINE 15 MG TAB PO SCH (21:04)
[2020-04-05] MEDS: GABAPENTIN 300 MG CAP PO SCH (21:04)
[2020-04-05] MEDS: QUEtiapine FUMARATE 200 MG TAB PO SCH (21:04)
[2020-04-05] MEDS: traZODone 50 MG TAB PO PRN (21:04)
[2020-04-05] MEDS: MONTELUKAST 10 MG TAB PO SCH (21:04)
[2020-04-06] MEDS: ACETAMINOPH W/CODEINE #3 TAB UD PO PRN ×2 (06:33→18:25)
[2020-04-06 07:05] VITALS: BP 149/89
[2020-04-06] MEDS: busPIRone 5 MG TAB PO SCH ×2 (08:31→20:49)
[2020-04-06] MEDS: lamoTRIgine 25 MG TAB PO SCH (08:31)
[2020-04-06] MEDS: haloperidoL 5 MG TAB PO SCH (08:31)
[2020-04-06] MEDS: hydrOXYzine 50 MG TAB PO PRN ×2 (10:58→17:20)
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
[2020-04-06 16:55] VITALS: BP 115/76
[2020-04-06] MEDS: QUEtiapine FUMARATE 200 MG TAB PO SCH (20:50)
[2020-04-06] MEDS: MIRTAZAPINE 15 MG TAB PO SCH (20:50)
[2020-04-06] MEDS: GABAPENTIN 300 MG CAP PO SCH (20:50)
[2020-04-06] MEDS: traZODone 50 MG TAB PO PRN (20:50)
[2020-04-06] MEDS: MONTELUKAST 10 MG TAB PO SCH (20:50)
[2020-04-07] MEDS: busPIRone 5 MG TAB PO SCH ×2 (08:43→21:08)
[2020-04-07] MEDS: lamoTRIgine 25 MG TAB PO SCH (08:43)
[2020-04-07] MEDS: ACETAMINOPH W/CODEINE #3 TAB UD PO PRN ×2 (08:43→21:09)
--- NOTE | 2020-04-07 10:10 | MHIPN ---
DATE: 04/05/2020 VITAL SIGNS: Blood pressure 141/79, pulse 113, temperature 96.8. CHIEF COMPLAINT: Feels anxious. SUBJECTIVE: Seen for follow up. She is seen in the presence of staff. Says feels anxious, but that she has been to attend a couple of groups yesterday, says has been better than she thought was anxious before going. Says she has had a hard time with sleep. Does not think that she had any nightmares, says she is not sure. Says gets the Seroquel at 400 mg at night, uses it only for sleep, says uses it regularly, has been on this dose for the last year or so. Says still remains anxious when staff checks on her, as per routine, lately gets paranoid, afraid someone is coming to the room. Has been eating okay. MENTAL STATUS EXAMINATION: She is lying in bed. She is cooperative. There is no agitation. No psychomotor retardation. Affect restricted in range. Denies any suicidal thoughts or intents at present. No homicidal ideas or intents. Currently, no evidence of any psychosis. Does not appear internally preoccupied. No delusional ideations elicited at present. Cognition is grossly intact. Her judgment is questionable, insight fair ASSESSMENT: She is less anxious overall, with more confidence, has been to a couple of groups, which is encouraging. PLAN: She is taking the Seroquel at 400 mg at night as needed for sleep, not an effective sleep aid and has other purposes at that dose, in terms of mood stabilization as well, and in view of this would switch the indication for the Seroquel, that she takes it regularly. This may need to be reassessed and that could be done as an outpatient. She attends [facility]. I will encourage her to be involved in activities in the unit as tolerated. Further recommendations to be made depending on the clinical picture. ANTOINETTE
[2020-04-07] MEDS ORDERED: BENZ0.5T23 PO (11:04)
[2020-04-07] MEDS ORDERED: BUSP15TA47 PO (11:04)
[2020-04-07] MEDS ORDERED: VENTAER INH (11:04)
[2020-04-07] MEDS ORDERED: LAMI25TA PO (11:05)
[2020-04-07] MEDS ORDERED: HALO10TA20 PO (11:05)
[2020-04-07] MEDS ORDERED: TRAZ-189 PO (11:06)
[2020-04-07] MEDS: BENZTROPINE 0.5 MG TAB PO PRN ×2 (11:12→22:47)
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
[2020-04-07] MEDS: hydrOXYzine 50 MG TAB PO PRN (13:19)
[2020-04-07 16:23] VITALS: BP 139/77
[2020-04-07] MEDS: GABAPENTIN 300 MG CAP PO SCH (21:07)
[2020-04-07] MEDS: MONTELUKAST 10 MG TAB PO SCH (21:07)
[2020-04-07] MEDS: MIRTAZAPINE 15 MG TAB PO SCH (21:08)
[2020-04-07] MEDS: QUEtiapine FUMARATE 200 MG TAB PO SCH (21:08)
[2020-04-07] MEDS: traZODone 50 MG TAB PO PRN (22:47)
[2020-04-08 06:40] VITALS: BP 144/75
[2020-04-08] MEDS: lamoTRIgine 25 MG TAB PO SCH (08:44)
[2020-04-08] MEDS: busPIRone 5 MG TAB PO SCH (08:44)
[2020-04-08] MEDS: ACETAMINOPH W/CODEINE #3 TAB UD PO PRN (08:45)
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
[2020-04-08] MEDS: haloperidoL 5 MG TAB PO PRN (13:05)
== END 2020-04-08 13:17 | disposition home or self-care (01) | DRG 885 ==
LOC: M ED 17:20 → M ED INP 21:56 → M PSY 04-01 00:50
PROVIDERS: ADMIT Psychiatry & Neurology Psychiatry; ATTEND Psychiatry & Neurology Psychiatry
DX: F25.0 Schizoaffective disorder, bipolar type (principal); K50.90 Crohn's disease, unspecified, without complications; F84.5 Asperger's syndrome; J45.909 Unspecified asthma, uncomplicated; K21.9 Gastro-esophageal reflux disease without esophagitis; F43.10 Post-traumatic stress disorder, unspecified; G43.909 Migraine, unspecified, not intractable, without status migrainosus; G40.909 Epilepsy, unspecified, not intractable, without status epilepticus; E66.01 Morbid (severe) obesity due to excess calories; Z79.899 Other long term (current) drug therapy; Z88.6 Allergy status to analgesic agent; Z88.5 Allergy status to narcotic agent; Z88.8 Allergy status to other drugs, medicaments and biological substances; Z98.84 Bariatric surgery status; Z91.013 Allergy to seafood

== ENCOUNTER 2022-11-05 14:14 | Emergency (ER) | payer OTHER, MEDICAID ==
[~2022-11-05] VITALS: Ht 167.6 cm; Wt 100.0 kg
[~2022-11-05 14:14] MED LIST changes: +ACET300T48 PO; +BENZ0.5T2 PO; +BUSP15TA47 PO; +ERGO500029 PO; +GABA-282 PO; +HALO10TA20 PO; +LAMI25TA PO; +MONT10TA97 PO; +OMEP40CA4 PO; -OMEP40CA97 PO; +ONDA-84 PO; -ONDA8TAB10 PO; -QUET1TAB10 PO; +QUET300T2 PO; +QUET400T2 PO; +TRAZ-189 PO; +TRAZ1TAB12 PO
[2022-11-05] MEDS ORDERED: LORA-674 PO (18:11)
[2022-11-05] MEDS ORDERED: SERT50TA29 PO (18:11)
[2022-11-05] MEDS ORDERED: VITMTA PO (18:11)
[2022-11-05] MEDS ORDERED: QUET300T2 PO (18:11)
[2022-11-05] MEDS ORDERED: TREL1AER INH (18:11)
[2022-11-05] MEDS ORDERED: TRAZ-257 PO (18:11)
[2022-11-05] MEDS ORDERED: ALBU8.5H INH (18:11)
[2022-11-05] MEDS ORDERED: HOME MED LIST COMPLETE! XX SCH (18:15)
[2022-11-05 19:28] VITALS: BP 138/75; TEMP 98.1; O2SAT 97
== END 2022-11-05 20:03 | disposition home or self-care (01) ==
LOC: EDBD 14:14 → M ED 14:14
DX: F41.9 Anxiety disorder, unspecified (principal); R45.851 Suicidal ideations; F31.9 Bipolar disorder, unspecified; G47.33 Obstructive sleep apnea (adult) (pediatric); Z98.84 Bariatric surgery status; Z88.6 Allergy status to analgesic agent; Z88.8 Allergy status to other drugs, medicaments and biological substances; Z91.013 Allergy to seafood; Z79.52 Long term (current) use of systemic steroids; Z79.810 Long term (current) use of selective estrogen receptor modulators (SERMs); Z79.899 Other long term (current) drug therapy

== ENCOUNTER 2022-11-07 15:36 | Inpatient (IN) | payer OTHER, MEDICAID ==
[~2022-11-07] VITALS: Ht 167.6 cm; Wt 96.3 kg
[~2022-11-07 15:36] MED LIST changes: +ALBU8.5H INH; +LORA-674 PO; +SERT50TA29 PO; +TRAZ-257 PO; +TREL1AER INH; +VITMTA PO
[2022-11-07 17:11] LABS: HEMATOCRIT 41.4 % (36.0-47.0); HEMOGLOBIN 14.3 g/dl (12.0-15.5); MEAN CORPUSCULAR HGB CONC 34.5 g/dl (32.0-36.5); MEAN CORPUSCULAR VOLUME 101.5 fl (80.0-96.0); PLATELET COUNT, AUTOMATED 222 10^3/uL (150-450); RED BLOOD COUNT 4.08 10^6/uL (4.00-5.40); WHITE BLOOD COUNT 6.1 10^3/uL (4.0-10.0)
[2022-11-07 17:37] LABS: ETHYL ALCOHOL (ETHANOL) < 0.003 % (0.000-0.010)
[2022-11-07 17:38] LABS: SALICYLATE LEVEL < 3.0 MG/DL (<30)
[2022-11-07 17:39] LABS: ACETAMINOPHEN LEVEL < 2.0 UG/ML (10.0-20.0); ALBUMIN 4.3 G/DL (3.2-5.2); ALKALINE PHOSPHATASE 76 U/L (46-116); ALT/SGPT 13 U/L (7.0-40); AST/SGOT 11 U/L (<34); BILIRUBIN,DIRECT 0.2 MG/DL (<0.4); BILIRUBIN,TOTAL 0.4 MG/DL (0.3-1.2); BLOOD UREA NITROGEN 11 MG/DL (9-23); CALCIUM LEVEL 9.5 MG/DL (8.5-10.1); CARBON DIOXIDE LEVEL 21 MMOL/L (20-31); CHLORIDE LEVEL 107 MMOL/L (98-107); CREATININE FOR GFR 0.75 MG/DL (0.55-1.30); GLOMERULAR FILTRATION RATE > 60.0 (>58); GLUCOSE, FASTING 85 MG/DL (60-100); POTASSIUM SERUM 4.1 MMOL/L (3.5-5.1); SODIUM LEVEL 138 MMOL/L (136-145); TOTAL PROTEIN 6.8 G/DL (5.7-8.2)
[2022-11-07 17:41] LABS: THYROID STIMULATING HORMONE 2.334 uIU/ML (0.55-4.78)
[2022-11-07 19:05] LABS: AMPHETAMINES LEVEL URINE NEGATIVE (NEGATIVE); BENZODIAZEPINES URINE NEGATIVE (NEGATIVE); PHENCYCLIDINE URINE NEGATIVE (NEGATIVE)
[2022-11-07 19:06] LABS: BARBITURATES URINE NEGATIVE (NEGATIVE); COCAINE METABOLITE URINE NEGATIVE (NEGATIVE); METHADONE URINE NEGATIVE (NEGATIVE); OPIATES URINE NEGATIVE (NEGATIVE)
[2022-11-07 19:11] LABS: CANNABINOIDS URINE POSITIVE (NEGATIVE)
[2022-11-07] MEDS ORDERED: NICOTINE 21MG/24HR 1 EA TRANSDERMAL TD PRN (22:00)
[2022-11-07] MEDS ORDERED: traZODone 50 MG TAB PO PRN (22:00)
[2022-11-07] MEDS ORDERED: MAALOX 30 ML SUSP *UDC PO PRN (22:00)
[2022-11-07] MEDS ORDERED: VITATAB73 PO (22:29)
[2022-11-07] MEDS ORDERED: FERR1TAB8 PO (22:29)
[2022-11-07] MEDS ORDERED: GNP99TAB3 PO (22:29)
[2022-11-07] MEDS ORDERED: RA M10TA PO (22:29)
[2022-11-07] MEDS ORDERED: VITA100093 PO (22:29)
[2022-11-07] MEDS ORDERED: GREE150C7 PO (22:29)
[2022-11-07] MEDS ORDERED: ACET-1349 PO (22:29)
[2022-11-07] MEDS ORDERED: HOME MED LIST COMPLETE! XX SCH (22:30)
[2022-11-07 23:51] VITALS: BP 108/61; TEMP 96.5; O2SAT 96
[2022-11-08] MEDS ORDERED: FIORICET TAB PO ONE (01:00)
[2022-11-08] MEDS: OLANZapine ORAL DISINTEGRATING TAB 5MG PO PRN ×2 (01:36→11:44)
[2022-11-08] MEDS: diphenhydrAMINE 25MG CAP PO PRN (01:36)
[2022-11-08 05:58] VITALS: BP 115/81; TEMP 97.9; O2SAT 99
[2022-11-08] MEDS: ADVAIR HFA 115/21MCG INHALER INH SCH ×2 (11:44→21:01)
[2022-11-08] MEDS: GABAPENTIN 100 MG CAP PO SCH ×2 (13:08→21:02)
[2022-11-08] MEDS: DULoxetine 20MG CAP (CYMBALTA) PO SCH (13:08)
[2022-11-08 18:01] VITALS: BP 131/81; TEMP 96.2
[2022-11-08] MEDS: LORATADINE 10 MG TAB PO SCH (21:02)
[2022-11-08] MEDS: VITAMIN D 1,000 INTERNATIONAL UNITS TABLET PO SCH (21:02)
[2022-11-08] MEDS: traZODone 100 MG TAB PO PRN (21:02)
[2022-11-08] MEDS: FERROUS SULFATE 325MG TAB PO SCH (21:02)
[2022-11-09 06:15] VITALS: BP 121/70; TEMP 96.3; O2SAT 96
[2022-11-09] MEDS: ADVAIR HFA 115/21MCG INHALER INH SCH ×2 (08:00→20:39)
[2022-11-09] MEDS: GABAPENTIN 100 MG CAP PO SCH ×3 (08:01→20:42)
[2022-11-09] MEDS: DULoxetine 20MG CAP (CYMBALTA) PO SCH (08:01)
[2022-11-09] MEDS: diphenhydrAMINE 25MG CAP PO PRN (14:51)
[2022-11-09 18:28] VITALS: BP 126/87; TEMP 97.9
[2022-11-09] MEDS: ACETAMINOPHEN TAB 650MG DOSE (2X325MG) PO PRN (18:39)
[2022-11-09] MEDS: FERROUS SULFATE 325MG TAB PO SCH (20:40)
[2022-11-09] MEDS: LORATADINE 10 MG TAB PO SCH (20:41)
[2022-11-09] MEDS: VITAMIN D 1,000 INTERNATIONAL UNITS TABLET PO SCH (20:41)
[2022-11-09] MEDS ORDERED: ARIPiprazole 2 MG TAB PO SCH (21:00)
[2022-11-10] MEDS: diphenhydrAMINE 25MG CAP PO PRN (02:55)
[2022-11-10] MEDS: OLANZapine ORAL DISINTEGRATING TAB 5MG PO PRN (02:55)
[2022-11-10 06:47] VITALS: BP 105/58; TEMP 96.2; O2SAT 97
[2022-11-10] MEDS: DULoxetine 20MG CAP (CYMBALTA) PO SCH (08:11)
[2022-11-10] MEDS: GABAPENTIN 100 MG CAP PO SCH ×3 (08:11→21:13)
[2022-11-10] MEDS: ADVAIR HFA 115/21MCG INHALER INH SCH ×2 (08:11→21:13)
[2022-11-10 18:56] VITALS: BP 131/89; TEMP 97.3
[2022-11-10] MEDS: LORATADINE 10 MG TAB PO SCH (21:13)
[2022-11-10] MEDS: traZODone 100 MG TAB PO PRN (21:13)
[2022-11-10] MEDS: FERROUS SULFATE 325MG TAB PO SCH (21:13)
[2022-11-10] MEDS: VITAMIN D 1,000 INTERNATIONAL UNITS TABLET PO SCH (21:13)
[2022-11-11] MEDS: diphenhydrAMINE 25MG CAP PO PRN (00:12)
[2022-11-11] MEDS: GABAPENTIN 100 MG CAP PO SCH ×3 (08:13→21:59)
[2022-11-11] MEDS: ADVAIR HFA 115/21MCG INHALER INH SCH ×2 (08:14→19:33)
[2022-11-11] MEDS: DULoxetine 20MG CAP (CYMBALTA) PO SCH (08:14)
[2022-11-11] MEDS: ACETAMINOPHEN TAB 650MG DOSE (2X325MG) PO PRN ×2 (09:29→18:00)
[2022-11-11] MEDS: OLANZapine ORAL DISINTEGRATING TAB 5MG PO PRN ×2 (09:29→19:36)
[2022-11-11] MEDS: MOM 30ML SUSPENSION UDC PO PRN (13:24)
[2022-11-11 18:56] VITALS: BP 132/83; TEMP 97.2
[2022-11-11] MEDS: LORATADINE 10 MG TAB PO SCH (21:58)
[2022-11-11] MEDS: FERROUS SULFATE 325MG TAB PO SCH (21:59)
[2022-11-11] MEDS: DIVALPROEX 250MG TAB PO SCH (21:59)
[2022-11-11] MEDS: DOXEPIN 25 MG CAP PO SCH (22:00)
[2022-11-11] MEDS: VITAMIN D 1,000 INTERNATIONAL UNITS TABLET PO SCH (22:00)
[2022-11-12] MEDS: ACETAMINOPHEN TAB 650MG DOSE (2X325MG) PO PRN (04:49)
[2022-11-12 06:15] VITALS: BP 113/73; TEMP 96.7; O2SAT 98
[2022-11-12] MEDS: ALBUTEROL 90 MCG/ACT 8GM HFA INHALER INH PRN (06:50)
[2022-11-12] MEDS: ADVAIR HFA 115/21MCG INHALER INH SCH ×2 (08:28→21:44)
[2022-11-12] MEDS: GABAPENTIN 100 MG CAP PO SCH ×3 (08:28→21:40)
[2022-11-12] MEDS: DULoxetine 20MG CAP (CYMBALTA) PO SCH (08:28)
[2022-11-12] MEDS: OLANZapine ORAL DISINTEGRATING TAB 5MG PO PRN (09:44)
[2022-11-12] MEDS: MOM 30ML SUSPENSION UDC PO PRN (15:21)
[2022-11-12] MEDS: VITAMIN D 1,000 INTERNATIONAL UNITS TABLET PO SCH (21:41)
[2022-11-12] MEDS: LORATADINE 10 MG TAB PO SCH (21:41)
[2022-11-12] MEDS: DIVALPROEX 250MG TAB PO SCH (21:42)
[2022-11-12] MEDS: FERROUS SULFATE 325MG TAB PO SCH (21:42)
[2022-11-12] MEDS: PRAZOSIN 1 MG CAP PO SCH (21:42)
[2022-11-12] MEDS: DOXEPIN 25 MG CAP PO SCH (21:42)
[2022-11-13] MEDS: ACETAMINOPHEN TAB 650MG DOSE (2X325MG) PO PRN ×3 (04:36→23:56)
[2022-11-13 04:42] VITALS: BP 123/85; TEMP 97; O2SAT 100
[2022-11-13 06:21] VITALS: BP 123/85; TEMP 97; O2SAT 100
[2022-11-13] MEDS: DULoxetine 20MG CAP (CYMBALTA) PO SCH (07:39)
[2022-11-13] MEDS: ADVAIR HFA 115/21MCG INHALER INH SCH ×2 (07:39→20:39)
[2022-11-13] MEDS: OLANZapine ORAL DISINTEGRATING TAB 5MG PO PRN (07:39)
[2022-11-13] MEDS: GABAPENTIN 100 MG CAP PO SCH ×3 (07:39→21:24)
[2022-11-13] MEDS: ALBUTEROL 90 MCG/ACT 8GM HFA INHALER INH PRN (15:32)
[2022-11-13 18:23] VITALS: BP 140/80; TEMP 98.2
[2022-11-13] MEDS: LORATADINE 10 MG TAB PO SCH (21:24)
[2022-11-13] MEDS: DIVALPROEX 250MG TAB PO SCH (21:24)
[2022-11-13] MEDS: VITAMIN D 1,000 INTERNATIONAL UNITS TABLET PO SCH (21:24)
[2022-11-13] MEDS: FERROUS SULFATE 325MG TAB PO SCH (21:24)
[2022-11-13] MEDS: DOXEPIN 25 MG CAP PO SCH (21:24)
[2022-11-13 21:28] VITALS: BP 146/88
[2022-11-13] MEDS: PRAZOSIN 1 MG CAP PO SCH (21:28)
[2022-11-14 06:03] VITALS: BP 137/65; TEMP 98.4; O2SAT 100
[2022-11-14] MEDS: ACETAMINOPHEN TAB 650MG DOSE (2X325MG) PO PRN (06:44)
[2022-11-14] MEDS ORDERED: DEPA250T32 PO (09:18)
[2022-11-14] MEDS ORDERED: PRAZ2CAP PO (09:18)
[2022-11-14] MEDS ORDERED: ABIL1TAB11 PO (09:18)
[2022-11-14] MEDS ORDERED: OLAN1TAB16 PO (09:18)
[2022-11-14] MEDS ORDERED: DOXE25CA PO (09:18)
[2022-11-14] MEDS ORDERED: CYMB1CAP4 PO (09:18)
[2022-11-14] MEDS: GABAPENTIN 100 MG CAP PO SCH (09:42)
[2022-11-14] MEDS: DULoxetine 20MG CAP (CYMBALTA) PO SCH (09:42)
[2022-11-14] MEDS: ADVAIR HFA 115/21MCG INHALER INH SCH (09:42)
== END 2022-11-14 13:09 | disposition home or self-care (01) | DRG 885 ==
LOC: M ED 15:36 → M ED INP 22:00 → M PSY 23:56
PROVIDERS: ADMIT Student in an Organized Health Care Education/Training Program; ATTEND Student in an Organized Health Care Education/Training Program
DX: F25.0 Schizoaffective disorder, bipolar type (principal); R45.851 Suicidal ideations; K50.90 Crohn's disease, unspecified, without complications; F41.9 Anxiety disorder, unspecified; G40.909 Epilepsy, unspecified, not intractable, without status epilepticus; F17.200 Nicotine dependence, unspecified, uncomplicated; F12.90 Cannabis use, unspecified, uncomplicated; F43.10 Post-traumatic stress disorder, unspecified; F84.5 Asperger's syndrome; M54.9 Dorsalgia, unspecified; G89.29 Other chronic pain; J45.909 Unspecified asthma, uncomplicated; K21.9 Gastro-esophageal reflux disease without esophagitis; Z98.84 Bariatric surgery status; Z90.49 Acquired absence of other specified parts of digestive tract; Z88.8 Allergy status to other drugs, medicaments and biological substances; Z91.51 Personal history of suicidal behavior; Z88.6 Allergy status to analgesic agent; Z91.013 Allergy to seafood; Z79.52 Long term (current) use of systemic steroids; Z79.899 Other long term (current) drug therapy

== ENCOUNTER → 2024-07-26 | Outpatient (REF) | payer OTHER, MEDICAID ==
[~2024-07-26] MED LIST changes: +ABIL1TAB11 PO; +ACET-1349 PO; +CYMB1CAP4 PO; +DEPA250T32 PO; +DOXE25CA PO; +FERR1TAB8 PO; +GABA-1172 PO; -GABA-282 PO; +GNP99TAB3 PO; +GREE150C7 PO; +LORA-1041 PO; -LORA-674 PO; +OLAN1TAB16 PO; -OLAN20TA14 PO; +OLAN20TA53 PO; +PRAZ2CAP PO; +RA M10TA PO; +VITA100093 PO; +VITATAB73 PO
[2024-07-26 14:06] LABS: APPEARANCE, URINE CLOUDY (CLEAR); BACTERIA, URINE AUTO NEGATIVE (NEGATIVE); BILIRUBIN, URINE AUTO NEGATIVE (NEGATIVE); BLOOD, URINE BLOOD NEGATIVE (NEGATIVE); CALCIUM OXALATE CRYSTALS LARGE; COLOR, URINE YELLOW (YELLOW); GLUCOSE, URINE (UA) AUTO NEGATIVE (NEGATIVE); KETONE, URINE AUTO NEGATIVE (NEGATIVE); LEUKOCYTE ESTERASE, URINE AUTO NEGATIVE (NEGATIVE); MUCUS, URINE SMALL (NEGATIVE); NITRITE, URINE AUTO NEGATIVE (NEGATIVE); PROTEIN, URINE AUTO NEGATIVE (NEGATIVE); RBC, URINE AUTO 0 /HPF (0-3); SPECIFIC GRAVITY URINE AUTO 1.019 (1.002-1.035); SQUAMOUS EPITHELIAL CELL UR AU 1 /HPF (0-6); WBC, URINE AUTO 0 /HPF (0-3)
== END ==
LOC: M SMT 13:02
PROVIDERS: ATTEND Nurse Practitioner Family
DX: R31.9 Hematuria, unspecified (principal)